=== PATIENT | male | born 1950 | race Caucasian/White ===

== ENCOUNTER 2018-03-13 16:46 | Outpatient (CLI) | payer BC ==
[2018-03-13 17:44] LABS: #Eosinphils 0.2 thou/uL (0.0-0.7); #Lymphocytes 1.8 thou/uL (1.20-3.40); #Monocytes 0.6 thou/uL (0.11-0.59); #Neutrophils 4.2 thou/uL (1.40-6.50); %Basophils 0.3 % (0.0-1.0); %Eosinophils 3.1 % (0.0-10.0); %Lymphocytes 25.9 % (21.0-51.0); %Monocytes 8.5 % (0.0-10.0); %Neutrophils 62.2 % (42.0-75.0); Hemoglobin 14.6 g/dL (14.0-18.0); Mean Corpuscular HGB CONC 32.9 g/dL (32.0-36.0); Mean Corpuscular Hemoglobin 31.2 pg (27.0-31.0); Mean Corpuscular Volume 94.8 fL (78.0-98.0); Mean Platelet Volume 7.8 fL (7.4-10.4); Platelet Count 212 thou/uL (130-400); Red Blood Cell (RBC) Count 4.69 mill/uL (4.70-6.10); White Blood Cell (WBC) Count 6.8 thou/uL (4.8-10.8)
[2018-03-13 17:48] LABS: INR-International Normal Ratio 1.1; PTT 34.2 SEC (22.9-36.1)
[2018-03-13 18:09] LABS: ALT (SGPT) 30 U/L (8-55); AST (SGOT) 17 U/L (5-34); Albumin 4.5 g/dL (3.4-4.8); Alkaline Phosphatase 55 U/L (40-150); Anion Gap 12 mmol/L (10-20); BUN (Urea Nitrogen) 19 mg/dL (8.4-25.7); Bilirubin, Total 0.7 mg/dL (0.2-1.2); Calc. Creatinine Clearance 0 mL/min (70-130); Calcium 9.6 mg/dL (7.8-10.44); Carbon Dioxide 29 mmol/L (23-31); Chloride 97 mmol/L (98-107); Estimated GFR-MDRD 75; Globulin 2.6 g/dL (2.4-3.5); Glucose 177 mg/dL (80-115); Potassium 3.7 mmol/L (3.5-5.1); Protein, Total 7.1 g/dL (5.8-8.1); Sodium 134 mmol/L (136-145)
== END 2018-03-13 16:47 | disposition home or self-care (01) ==
LOC: LABBT 16:46
PROVIDERS: ATTEND Internal Medicine Cardiovascular Disease
DX: Z01.812 Encounter for preprocedural laboratory examination (principal); R94.39 Abnormal result of other cardiovascular function study; R06.09 Other forms of dyspnea
CPT/HCPCS: 80053; 85025; 85610; 85730

== ENCOUNTER → 2018-03-17 | Day surgery (SDC) | payer BC ==
[2018-03-13 16:56] VITALS: BMI 30.6
[~2018-03-17] MED LIST: Fentanyl 100 MCG/2 ML VIAL ONE; Iopamidol 370 76% 100 ML VIAL ONE; Lidocaine 1% (PF) 30 ML VIAL ONE; Midazolam HCl 2 mg/2 ml Vial ONE; Nitroglycerin 100MG/250ML BOT 250 ML ONE
== END ==
LOC: CCL 06:09
PROVIDERS: ATTEND Internal Medicine Cardiovascular Disease
PROC: B2111ZZ Fluoroscopy of Multiple Coronary Arteries using Low Osmolar Contrast (ICD-10-PCS; principal; 2018-03-17)
PROC: 4A023N7 Measurement of Cardiac Sampling and Pressure, Left Heart, Percutaneous Approach (ICD-10-PCS; principal; 2018-03-17)
DX: I25.119 Atherosclerotic heart disease of native coronary artery with unspecified angina pectoris (principal); I25.84 Coronary atherosclerosis due to calcified coronary lesion; I10 Essential (primary) hypertension; E11.9 Type 2 diabetes mellitus without complications; E78.5 Hyperlipidemia, unspecified; J45.909 Unspecified asthma, uncomplicated; E78.00 Pure hypercholesterolemia, unspecified; Z79.82 Long term (current) use of aspirin; Z79.84 Long term (current) use of oral hypoglycemic drugs; Z79.899 Other long term (current) drug therapy
CPT/HCPCS: 76942; 93458; 99152; 99153; C1769; J1644; J2001; J2250; J3010

== ENCOUNTER 2018-08-22 08:31 | Day surgery (SDC) | payer BC ==
[2018-08-21 16:58] VITALS: BMI 29.0
--- NOTE | 2018-08-22 07:06 | HP ---
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 [place] significant lateral recess and foraminal stenosis, matching well with the symptoms that he is experiencing. His pain is rather profound and prohibits him from a lot of his physical activity. He hopes to move forward with surgery as possible. He does have a known history of significant lumbar decompression surgeries. PAST MEDICAL HISTORY: Significant for seasonal allergies, hypertension, hypercholesterolemia, diabetes. ALLERGIES: NO KNOWN DRUG ALLERGIES. CURRENT MEDICATIONS: 1. Singulair. 2. Ramipril. 3. Diovan/valsartan. 4. Pravastatin. 5. Metformin. 6. Imiquimod. PHYSICAL EXAMINATION: GENERAL: The patient is alert and oriented x3. Gait is severely antalgic. EXTREMITIES: Lower extremity exam is normal though limited by pain. He has positive femoral stretch on the left. ASSESSMENT: Lumbar radiculopathy. PLAN: Dr. Aguirre met with the patient, reviewed imaging, advocated for left L3, L4 decompression. He explained to the patient the risks, benefits, and alternatives to the procedure. The patient expressed understanding and elected to move forward with surgery as discussed. I do believe the patient is mentally competent capable of making medical decisions for himself. We will move forward with surgery as planned. Job ID: [id number]
[2018-08-22] MEDS ORDERED: Bupivacaine HCl 0.5%/Epinephrine 1:200,000/PF 30 ml Vial ONE (11:59)
[2018-08-22] MEDS ORDERED: Thrombin 5000 UNITS/5 ML VIAL ONE (11:59)
[2018-08-22] MEDS ORDERED: Fentanyl 100 MCG/2 ML VIAL ONE ×3 (12:41→15:16)
--- NOTE | 2018-08-22 15:37 | OP ---
DATE OF PROCEDURE: 08/22/2018 HEALTH COMMUNICATIONS SPECIALIST: Hemant Buenrostro PA-C INDICATION: Pain. DIAGNOSIS: Lumbar radiculopathy. PROCEDURES PERFORMED: Reoperation L4 hemilaminectomy, L3-L4 facetectomy, L3 foraminotomy, L2-L3 hemilaminectomy, decompression. ANESTHESIA: General. DESCRIPTION OF PROCEDURE: The patient was brought into the operating room and placed under general anesthesia. He was flipped from the supine to prone position on the operating room table. A linear incision was planned and centered around the L3 foramen. After prepping and draping and after an appropriate operative pause, the incision was created. The soft tissues were swept left of midline. A high-speed cutting drill bit as well as 2, 3, and 4 mm Kerrisons were used to perform a complete laminectomy along L3. Laminectomy was extended to encompass most of the facet joint at L3-L4 in order to completely unroof the exiting L3 nerve root and the descending L4 nerve root. In this area, there was a significant degree of scar, a large superior articulating facet portion of L4 as well as a synovial cyst. We also ensured that the L3 nerve root was well decompressed as it turned to corner around the medial aspect of the pedicle at the L2-L3 interface. The wound was then irrigated. Hemostasis was maintained throughout. The wound was then closed in anatomic layers and a pressure dressing was applied. There were no known procedural complications. Job ID: [id number]
[2018-08-22] MEDS ORDERED: Tamsulosin HCl 0.4 MG CAP ONE (15:49)
[2018-08-22] MEDS ORDERED: Glycopyrrolate 0.2 MG/ML 5 ML SYRINGE ONE (16:31)
[2018-08-22] MEDS ORDERED: PROPOFOL 200 MG/20 ML VIAL ONE (16:31)
[2018-08-22] MEDS ORDERED: Ondansetron PF 4 MG/2 ML Vial ONE (16:31)
[2018-08-22] MEDS ORDERED: Rocuronium Bromide 10 MG/ML (10ML VIAL) ONE (16:31)
[2018-08-22] MEDS ORDERED: PHENYLEPHRINE-NS 100 MCG/ML 10 ML SYRINGE ONE (16:31)
[2018-08-22] MEDS ORDERED: ePHEDrine 50 MG/ML VIAL ONE (16:31)
[2018-08-22] MEDS ORDERED: Lidocaine 1% PF 5 ML VIAL ONE (16:31)
[2018-08-22] MEDS ORDERED: Dexamethasone 20 MG/5 ML VIAL ONE (16:31)
[2018-08-22] MEDS ORDERED: tiZANidine HCl 4 MG TAB ONE (16:33)
== END 2018-08-22 17:45 | disposition home or self-care (01) ==
LOC: SDC 08:31
PROVIDERS: ATTEND Neurological Surgery
PROC: 0SB20ZZ Excision of Lumbar Vertebral Disc, Open Approach (ICD-10-PCS; principal; 2018-08-22)
PROC: 01NB0ZZ Release Lumbar Nerve, Open Approach (ICD-10-PCS; principal; 2018-08-22)
DX: M48.061 Spinal stenosis, lumbar region without neurogenic claudication (principal); M54.16 Radiculopathy, lumbar region; I10 Essential (primary) hypertension; E11.9 Type 2 diabetes mellitus without complications; E78.00 Pure hypercholesterolemia, unspecified; Z79.84 Long term (current) use of oral hypoglycemic drugs; Z79.899 Other long term (current) drug therapy
CPT/HCPCS: 76000; J0670; J0690; J1100; J2001; J2405; J2704; J3010; J3490

== ENCOUNTER 2018-10-02 15:00 | Outpatient (CLI) | payer BC | END 2018-10-02 15:01 | disposition home or self-care (01) | LOC: SLEEPLAB 15:00 | PROVIDERS: ATTEND Internal Medicine Critical Care Medicine | DX: G47.33 Obstructive sleep apnea (adult) (pediatric) (principal); R53.83 Other fatigue; E11.9 Type 2 diabetes mellitus without complications | CPT/HCPCS: 95806 ==

== ENCOUNTER 2019-02-12 14:21 | Inpatient (IN) | payer BC, MEDICARE ==
[2019-02-12 14:45] LABS: #Eosinphils 0.2 thou/uL (0.0-0.7); #Lymphocytes 0.8 thou/uL (1.20-3.40); #Monocytes 0.6 thou/uL (0.11-0.59); #Neutrophils 10.9 thou/uL (1.40-6.50); %Basophils 0.1 % (0.0-1.0); %Eosinophils 1.3 % (0.0-10.0); %Lymphocytes 6.2 % (21.0-51.0); %Monocytes 5.1 % (0.0-10.0); %Neutrophils 87.4 % (42.0-75.0); Hemoglobin 15.5 g/dL (14.0-18.0); Mean Corpuscular Volume 94.2 fL (78.0-98.0); Mean Platelet Volume 7.7 fL (7.4-10.4); Platelet Count 183 thou/uL (130-400); RBC Distribution Width 11.6 % (11.5-14.5); Red Blood Cell (RBC) Count 4.69 mill/uL (4.70-6.10); White Blood Cell (WBC) Count 12.4 thou/uL (4.8-10.8)
[2019-02-12] MEDS ORDERED: ISOVUE-370 76%-LOCM 1 ML ONE (14:58)
--- NOTE | 2019-02-12 15:07 | RAD ---
1 VIEW CHEST: Date: 02/12/19 HISTORY: Pain. COMPARISON: 07/11/15. FINDINGS: Normal cardiac silhouette. Lungs and pleural spaces are clear. No pneumothorax or osseous abnormaliti es. IMPRESSION: No acute cardiopulmonary process. POS: [facility]
[2019-02-12] MEDS ORDERED: Morphine 4 MG/ML VIAL ONE ×3 (15:14→17:13)
[2019-02-12 15:18] LABS: ALT (SGPT) 28 U/L (8-55); AST (SGOT) 20 U/L (5-34); Albumin 4.8 g/dL (3.4-4.8); Alkaline Phosphatase 65 U/L (40-110); Anion Gap 14 mmol/L (10-20); BUN (Urea Nitrogen) 17 mg/dL (8.4-25.7); Calc. Creatinine Clearance 0 mL/min (70-130); Calcium 9.8 mg/dL (7.8-10.44); Carbon Dioxide 25 mmol/L (23-31); Chloride 96 mmol/L (98-107); Estimated GFR-MDRD 80; Globulin 2.9 g/dL (2.4-3.5); Glucose 201 mg/dL (80-115); Potassium 3.2 mmol/L (3.5-5.1); Protein, Total 7.7 g/dL (5.8-8.1); Sodium 132 mmol/L (136-145)
[2019-02-12 15:33] LABS: Lipase 1690 U/L (8-78)
--- NOTE | 2019-02-12 16:00 | CT ---
EXAM: Abdomen and pelvic CT scan with contrast: HISTORY: Left upper quadrant abdominal pain radiation to back prior surgeries with lumbar spine surgery prior to, neoplasm. COMPARISON: None FINDINGS: The visualized lung bases are clear. Liver: Tiny poorly defined low-attenuation focus in the right lobe of the liver too small to characte rize, statistically a small cyst. Small hiatal hernia with minimal thickening of the distal esophagus, there are some surgical clips in this region. Gallbladder:Unremarkable. Pancreas:Peripancreatic fat stranding involving the head and body of the pancreas with some thickenin g of the left anterior pararenal fascia raising concern for acute pancreatitis, correlate with laboratory findings. Spleen:Unremarkable. Adrenal glands:Unremarkable. Kidneys:Small nonobstructing left renal calculus. No evidence for acute obstruction. No solid or cystic renal mass. No evidence for bowel obstruction. No CT evidence for acute appendicitis. The urinary bladder is unremarkable. Reproductive system:Unremarkable No abscess, adenopathy, or abnormal fluid collection within the abdomen or pelvis. Small fat-containing left inguinal hernia. Lumbar spinal postoperative changes. IMPRESSION: Evidence for acute pancreatitis. Nonobstructing left renal calculus. Other findings as above.
--- NOTE | 2019-02-12 16:43 | ULT ---
Exam: Right upper quadrant ultrasound: HISTORY: Abdominal pain COMPARISON: CT abdomen on 02/12/2019 obtained prior to this exam. FINDINGS: Liver: Mildly enlarged in craniocaudal dimensions measuring 19.7 cm. There is mild increased echogen[place] of the liver relative to the right kidney which suggests possibility of mild fatty infiltration. This finding was not appreciated on the recent CT scan exam. No focal hepatic lesion is able to be delineated on this study. Gallbladder: No evidence of gallbladder calculi, gallbladder wall thickening, or pericholecystic flui d. Common bile duct: The common duct is normal in caliber measuring 2 mm in diameter. Pancreas: Obscured by shadowing from bowel gas and not evaluated. Right kidney: Right kidney demonstrates a normal sonographic appearance. The right kidney measures 1 2.3 cm in length. IVC: The visualized IVC demonstrates a normal sonographic appearance. IMPRESSION: 1. Enlargement of the liver which also demonstrates findings suggestive of mild fatty infiltration. 2. No gallbladder calculi are seen, and the common duct is normal in caliber.
[2019-02-12 17:04] LABS: Bilirubin Negative (Negative); Blood, Urine Negative (Negative); Clarity Clear (Clear); Glucose, Urine (Dipstick) 150 mg/dL (Negative); Leukocyte Negative Leu/uL (Negative); Nitrite Negative (Negative); Protein, Urine (Dipstick) 10 mg/dL (Neg-Trace); Urobilinogen Normal mg/dL (Less than 2)
[2019-02-12 17:24] LABS: RBC/HPF None Seen HPF (0-3); Squamous Epithelial 0-3 HPF (0-3); WBC/HPF None Seen HPF (0-3)
[2019-02-12 17:25] LABS: Bacteria/HPF None Seen HPF (None Seen); Calcium Oxalate Crystals 1+ HPF (None Seen)
[2019-02-12] MEDS ORDERED: Ondansetron PF 4 MG/2 ML Vial IVP PRN (17:39)
[2019-02-12] MEDS ORDERED: PROVENTIL INHALER 6.7 G (200 INHALATIONS) INH PRN (17:56)
[2019-02-12] MEDS ORDERED: Albuterol Sulfate 1.25 MG/3 ML NEB NEB PRN (17:56)
[2019-02-12] MEDS ORDERED: Dextrose 50% Abboject 50 ML SYRINGE SLOW IVP PRN (17:57)
[2019-02-12] MEDS ORDERED: HumaLOG 300 UNITS/3 ML VIAL SC PRN (17:57)
[2019-02-12] MEDS ORDERED: Dextrose 5% in Water 1,000 ML IV PRN (17:57)
[2019-02-12] MEDS ORDERED: Potassium Chloride 10 MEQ/100 ML PREMIX BAG IVPB SCH (18:00)
[2019-02-12] MEDS ORDERED: Morphine 2 MG/ML SYRINGE ONE (19:24)
[2019-02-12] MEDS ORDERED: Famotidine/PF 20 mg/2ml Vial SLOW IVP SCH (21:15)
[2019-02-12] MEDS: Ketorolac Tromethamine 30 MG/ML VIAL IVP PRN (21:29)
[2019-02-12] MEDS: Sodium Chloride 0.9% 1,000 ML IV SCH (21:30)
[2019-02-12 22:55] VITALS: BMI 30.2
[2019-02-13] MEDS: Morphine 4 MG/ML VIAL SLOW IVP PRN ×3 (00:31→15:00)
[2019-02-13] MEDS: Sodium Chloride 0.9% 1,000 ML IV SCH ×2 (00:34→17:22)
[2019-02-13] MEDS: Ketorolac Tromethamine 30 MG/ML VIAL IVP PRN ×2 (05:24→11:51)
[2019-02-13 07:48] LABS: ALT (SGPT) 21 U/L (8-55); AST (SGOT) 20 U/L (5-34); Albumin 3.5 g/dL (3.4-4.8); Alkaline Phosphatase 48 U/L (40-110); Anion Gap 12 mmol/L (10-20); BUN (Urea Nitrogen) 15 mg/dL (8.4-25.7); Bilirubin, Total 0.6 mg/dL (0.2-1.2); Calc. Creatinine Clearance 131 mL/min (70-130); Calcium 8.3 mg/dL (7.8-10.44); Carbon Dioxide 22 mmol/L (23-31); Chloride 103 mmol/L (98-107); Estimated GFR-MDRD Greater than 90; Globulin 2.3 g/dL (2.4-3.5); Glucose 133 mg/dL (80-115); Lipase 683 U/L (8-78); Potassium 3.9 mmol/L (3.5-5.1); Protein, Total 5.8 g/dL (5.8-8.1); Sodium 133 mmol/L (136-145)
[2019-02-13 07:55] LABS: #Eosinphils 0.1 thou/uL (0.0-0.7); #Lymphocytes 0.6 thou/uL (1.20-3.40); #Monocytes 0.4 thou/uL (0.11-0.59); #Neutrophils 5.5 thou/uL (1.40-6.50); %Basophils 0.2 % (0.0-1.0); %Eosinophils 1.1 % (0.0-10.0); %Lymphocytes 8.7 % (21.0-51.0); %Monocytes 6.3 % (0.0-10.0); %Neutrophils 83.6 % (42.0-75.0); Hemoglobin 12.7 g/dL (14.0-18.0); Mean Corpuscular HGB CONC 35.2 g/dL (32.0-36.0); Mean Corpuscular Hemoglobin 33.1 pg (27.0-31.0); Mean Platelet Volume 7.8 fL (7.4-10.4); Platelet Count 127 thou/uL (130-400); RBC Distribution Width 11.6 % (11.5-14.5); Red Blood Cell (RBC) Count 3.83 mill/uL (4.70-6.10); White Blood Cell (WBC) Count 6.6 thou/uL (4.8-10.8)
--- NOTE | 2019-02-13 08:30 | PDOC.HOSPP ---
- Subjective Encounter Date: 02/13/19 Encounter Time: 08:28 Subjective: Doing well. Pain is improved. Not resolved, but much improved. Slept well for a few hours last night. Was awakened by routine hospital operations and did not go back to sleep. Toradol helping. - Objective Vital Signs & Weight: Vital Signs (12 hours) Temp Pulse Resp BP Pulse Ox 02/13/19 07:10 98.8 F 75 18 121/76 95 02/13/19 04:11 97.6 F 75 18 119/78 96 02/13/19 00:35 97.6 F 77 18 114/72 96 02/13/19 00:04 95 Weight Weight 222 lb 8 oz I&O: 02/12/19 02/13/19 02/14/19 06:59 06:59 06:59 Intake Total 825 Balance 825 Result Diagrams: 02/13/19 07:45 02/13/19 06:13 Additional Labs: Accuchecks 02/13/19 02/12/19 04:14 21:09 POC Glucose 147 H 151 H Hospitalist ROS - Medication Medications: Active Medications Generic Name Dose Route Start Last Admin Trade Name Freq PRN Reason Stop Dose Admin Sodium Chloride 1,000 mls @ 75 mls/hr 02/12/19 17:45 02/13/19 00:34 Normal Saline 0.9% IV 1,000 mls .[id number] GIN Administration Ketorolac Tromethamine 15 mg 02/12/19 21:10 02/13/19 05:24 Toradol IVP 02/17/19 21:11 15 mg Q6H PRN Administration Pain Morphine Sulfate 4 mg 02/12/19 17:42 02/13/19 00:31 Morphine SLOW IVP 2 mg Q4H PRN Administration Moderate to Severe Pain (6-10) - Exam General Appearance: NAD, awake alert Heart: RRR, no murmur, no gallops, no rubs, normal peripheral pulses Respiratory: CTAB, no wheezes, no rales, no ronchi, normal chest expansion, no tachypnea, normal percussion Gastrointestinal: soft, non-distended, normal bowel sounds, no palpable masses, no hepatomegaly, no splenomegaly, no bruit, tender to palpation (Minimal epigastric) Skin: normal turgor Musculoskeletal: normal tone Psychiatric: normal affect, normal behavior, A&O x 3 Hosp A/P (1) Pancreatitis Code(s): K85.90 - ACUTE PANCREATITIS WITHOUT NECROSIS OR INFECTION, UNSP Status: Acute (2) Diabetes mellitus Code(s): E11.9 - TYPE 2 DIABETES MELLITUS WITHOUT COMPLICATIONS Status: Acute (3) HTN (hypertension) Code(s): I10 - ESSENTIAL (PRIMARY) HYPERTENSION Status: Acute (4) HLD (hyperlipidemia) Code(s): E78.5 - HYPERLIPIDEMIA, UNSPECIFIED Status: Acute (5) Asthma Code(s): J45.909 - UNSPECIFIED ASTHMA, UNCOMPLICATED Status: Acute (6) Hx of tongue cancer Status: Acute - Plan Doing better. Abd pain improved. Lipase down significantly. Continue Toradol and MSO4 for breakthrough. Resume essential po meds. If doing well, can consider some clears later today. Continue nebs, BP meds.
[2019-02-13] MEDS ORDERED: Non-Formulary Item 1 EACH (Ramipril [Ramipril] 20 MG) PO SCH (09:00)
[2019-02-13] MEDS ORDERED: Prevnar 13-Val Conj/PF 0.5 ML SYRINGE IM ONE (09:00)
[2019-02-13] MEDS ORDERED: FLU VACC TS2019-20(65YR UP)/PF 180 MCG/0.5 ML SYRINGE IM ONE (09:00)
--- NOTE | 2019-02-13 09:11 | HP ---
Date Seen: 02/12/19 CHIEF COMPLAINT: Abdominal pain. HISTORY OF PRESENT ILLNESS: This patient is a 68-year-old male, who presented to the emergency department. The patient has no history of alcohol use, gallbladder disease, or prior pancreatitis. He developed some epigastric pain after eating his evening meal the day before admission. He was able to go to bed and sleep through the night. The next morning, he had a little bit of discomfort, tried some OTC , ate a little bit and went back to bed for a brief time and was seemingly doing better, was getting up and around and his pain recurred and ultimately became more severe and was radiating to the back. Because of the patient's family history of aortic aneurysm, he was concerned and came to the emergency department for further evaluation. He has had some low-grade nausea and vomiting. He has had no fevers or chills. REVIEW OF SYSTEMS: He has continued to have fairly regular bowel movements. No urinary symptoms. All other systems reviewed. All pertinent positives and negatives noted in the History of Present Illness. PAST MEDICAL HISTORY: Hypertension; hyperlipidemia; asthma; obstructive sleep apnea, on BiPAP; and diabetes mellitus. PAST SURGICAL HISTORY: Nasal septal surgery following the nasal fracture, left ossicle reconstruction, C5-C6 diskectomy with stabilizing plates. He has had L4 -L5 laminectomy, bilateral knee replacements. He has cancer of the tongue requiring surgical extraction and a modified radical right neck dissection. He has had surgery on the extraocular muscles, surgery on his eyes, tonsillectomy. He also had a heart catheterization in February of 2018, which was normal. FAMILY HISTORY: Father had AAA and osteoarthritis. His mother is still alive and doing well. SOCIAL HISTORY: The patient is a nonsmoker, nondrinker, and nondrug user. He is . Full code. 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 ALLERGIES: NONE. CURRENT MEDICATIONS: 1. Imiquimod cream 2 times a week. 2. PreserVision vitamins one p.o. at bedtime. 3. Cialis p.r.n. 4. Flonase 2 sprays per nostril b.i.d. 5. Atorvastatin 80 mg at bedtime. 6. Aspirin 81 mg daily. 7. Albuterol 2 puffs q.4 hours p.r.n. 8. Advair Diskus 250/50 one inhalation b.i.d. 9. Calcium plus vitamin D one daily. 10. Glucosamine chondroitin complex one p.o. b.i.d. 11. Lasix 20 mg at bedtime. 12. Potassium 20 mEq daily. 13. Multivitamin one p.o. daily. 14. Singulair 10 mg daily. 15. Metformin one p.o. b.i.d. 16. Spironolactone 25 mg daily. 17. Ramipril 20 mg b.i.d. 18. Effexor XR 37.5 mg daily. PHYSICAL EXAMINATION: VITAL SIGNS: Temperature is 98.2, pulse 93, respirations 18, O2 saturation 95% on room air, and blood pressure 148/82. GENERAL APPEARANCE: Age-appropriate male. He is in no distress. He has had some morphine, but is still awake and conversant and in modest discomfort. HEENT: He has some mild chronic right eye ptosis. Pupils are slightly constricted, modestly reactive. He has no OP lesions. Minimal evidence of scarring on the lateral right tongue. NECK: He has a surgical incision that is old and well healed. Otherwise, there is no lymphadenopathy noted. HEART: Regular rate and rhythm without murmurs, gallops, or rubs. LUNGS: Clear to auscultation bilaterally with good chest wall expansion and air exchange. ABDOMEN: Soft, nondistended. Positive bowel sounds. There is some tenderness across the epigastrium, although not exquisite at this time. No masses are palpable. EXTREMITIES: No cyanosis, clubbing, or edema. NEUROLOGICAL: He is fully intact. Cognitively appropriate. PSYCH: Normal affect and behavior. LABORATORY DATA: White count 12.4, hemoglobin 15.5, and platelets 183. Sodium 132, potassium 3.2, chloride 96, CO2 is 25, BUN 17, creatinine 0.94, glucose 201, lactic acid was 1.9, and calcium 9.8. LFTs normal. Troponin 0.01. Lipase was 1690. Urinalysis with trace ketones and some calcium oxalate crystals. IMAGING DATA: Chest x-ray was negative. CT abdomen and pelvis shows evidence for acute pancreatitis. Abdominal ultrasound shows an enlarged liver consistent with fatty liver. There are no gallstones and the common bile duct appears normal. IMPRESSION AND PLAN: 1. Acute pancreatitis in a patient, who is a nondrinker with normal-appearing gallbladder or biliary tree on ultrasound. He has no history of familial hypertriglyceridemia, at this point etiology is idiopathic. We will treat with standard therapy with IV fluids, general bowel rest. We will give him some sips of water and ice chips. Pain management. We will repeat his labs in the morning. 2. Hypokalemia. We will replete and follow. 3. History of asthma. Continue with nebulizers and inhalers as needed. 4. Hypertension. We will resume his usual medications as he is able to tolerate some p.o.'s. 5. Hyperlipidemia. Continue to hold the statin for the moment. 6. Diabetes mellitus. Holding any p.o. medications. We will continue Accu- Cheks and sliding scale insulin for now. Job ID: [id number] MTDD
[2019-02-13] MEDS: Aspirin 81 mg Enteric Coated Tablet PO SCH ×2 (09:59→21:13)
[2019-02-13] MEDS: Montelukast Sodium 10 mg Tablet PO SCH (09:59)
[2019-02-13] MEDS: Fluticasone Propionate Nasal Spray 16 gm Bottle NASAL SCH ×2 (10:00→21:13)
[2019-02-13] MEDS: Enoxaparin Sodium 40 MG/0.4 ML SYRINGE SC SCH (10:02)
[2019-02-13] MEDS: Famotidine/PF 20 mg/2ml Vial SLOW IVP SCH ×2 (11:49→21:13)
[2019-02-13] MEDS ORDERED: Mometasone 200 MCG HFA INHALER INH SCH (18:30)
[2019-02-13] MEDS ORDERED: Venlafaxine XR 37.5 MG CAP PO SCH (21:00)
[2019-02-13] MEDS: Ramipril 5 MG CAP PO SCH (21:13)
[2019-02-13] MEDS ORDERED: Acetaminophen 325 MG TAB PO PRN (21:54)
[2019-02-14] MEDS ORDERED: Mometasone/Formoterol 120 PUFF INHALER INH SCH (06:30)
[2019-02-14 06:46] LABS: Anion Gap 10 mmol/L (10-20); BUN (Urea Nitrogen) 11 mg/dL (8.4-25.7); Calc. Creatinine Clearance 125 mL/min (70-130); Calcium 8.8 mg/dL (7.8-10.44); Carbon Dioxide 28 mmol/L (23-31); Chloride 105 mmol/L (98-107); Estimated GFR-MDRD Greater than 90; Glucose 144 mg/dL (80-115); Lipase 311 U/L (8-78); Potassium 3.8 mmol/L (3.5-5.1); Sodium 139 mmol/L (136-145)
[2019-02-14] MEDS: Sodium Chloride 0.9% 1,000 ML IV SCH (07:07)
[2019-02-14] MEDS: Montelukast Sodium 10 mg Tablet PO SCH (09:17)
[2019-02-14] MEDS: Ramipril 5 MG CAP PO SCH (09:18)
[2019-02-14] MEDS: Aspirin 81 mg Enteric Coated Tablet PO SCH (09:18)
[2019-02-14] MEDS: Enoxaparin Sodium 40 MG/0.4 ML SYRINGE SC SCH (09:19)
[2019-02-14] MEDS: Famotidine/PF 20 mg/2ml Vial SLOW IVP SCH (09:19)
[2019-02-14] MEDS: Fluticasone Propionate Nasal Spray 16 gm Bottle NASAL SCH (09:19)
[2019-02-14 11:50] VITALS: BP 149/86; TEMP 98.1
--- NOTE | 2019-02-16 13:40 | DIS ---
DATE OF ADMISSION: 02/12/2019 DATE OF DISCHARGE: 02/14/2019 DISCHARGE DIAGNOSES: 1. Acute pancreatitis of unknown etiology. 2. Diabetes mellitus. 3. Hypertension. 4. Hyperlipidemia. 5. Asthma. 6. History of tongue cancer. 7. Hypokalemia. 8. Hyponatremia. HISTORY OF PRESENT ILLNESS: This patient is a 68-year-old male, who presented via the emergency department with significant upper abdominal pain which had started the prior day. His initial workup included a CT scan of the abdomen and pelvis showing evidence for acute pancreatitis. His white count was 12.4. Lactic acid was 1.9. Troponin was negative and lipase was elevated at 1690. He had an abdominal ultrasound showing some fatty liver, but no gallstones and a normal-appearing common bile duct. His sodium was slightly low at 132 and potassium was slightly low at 3.2. HOSPITAL COURSE: The patient was admitted with acute pancreatitis. He was started on fluid hydration, pain management, and bowel rest. By the following day, the patient was already starting to feel significantly better, and his white count had normalized at 6.6. His lipase did come down to 683 and his sodium up to 133. He was ultimately allowed to start some mild clear liquids by the end of that day. His pain management was primarily accomplished with nonopioid medications, and by the following morning, he tolerated clear liquids without any difficulty. Lipase was down to 311. His pain had resolved. Sodium normalized. Potassium normalized. He was ambulating throughout the hsu. Ultimately, he was elevated to a regular diet which he tolerated well and was felt to be stable for discharge several hours later. PHYSICAL EXAMINATION: VITAL SIGNS: At the time of discharge, temperature 98.1, pulse 83, respirations 20, O2 saturation 96%, blood pressure 149/86. GENERAL: He was awake and alert. HEART: Regular rate and rhythm without murmurs, gallops, or rubs. LUNGS: Clear bilaterally. ABDOMEN: Benign. EXTREMITIES: No cyanosis, clubbing, or edema. DISPOSITION: He is discharged to home. ACTIVITY: As tolerated. DIET: He will remain on a diabetic diet. MEDICATIONS: 1. Toradol 10 mg p.o. q.6 hours p.r.n. pain. 2. Tramadol 50 mg q.i.d. p.r.n. pain. 3. He will continue his usual home medication regimen including. a. Glucosamine and chondroitin complex. b. Atorvastatin. c. Multivitamin. d. Singulair. e. Ramipril. f. Advair Diskus. g. Calcium with vitamin D. h. Aspirin. i. Effexor. j. K-Dur. k. Lasix. l. Albuterol inhaler. m. Metformin. n. Spironolactone. o. Cialis. p. Flonase. q. PreserVision. r. Imiquimod cream as needed. FOLLOWUP: He is to follow up with Ramon Green, his primary physician, in the [place], [place], and he can return to the hospital at any time should he have the need to do so. TIME SPENT: Total time in discharge activities was 35 minutes. Job ID: [id number]
--- NOTE | 2019-02-19 22:13 | PQF ---
[employer] Information Manager Crystal Reports Winform ViewerPURVIS,DEANNE Flores NAOMY GARCIA MD [id number] CLINICAL DOCUMENTATION CLARIFICATION FORM: POST DISCHARGE Addendum to original discharge summary date: ____ Late entry note date: __ DATE: 02/19/2019 ATTN:NAOMY GARCIA MD Please exercise your independent, professional judgment in responding to the clarification form. Clinical indicators are provided on the bottom of this form for your review Please check appropriate box(s): [ x ] Hyponatremia please specify etiology, if known [ ] Hyponatremia due to SIADH (Syndrome of Inappropriate Secretion of Antidiuretic Hormone) [ ] Abnormal lab findings [ ] Other diagnosis [ ] Unable to determine In addition, please specify: Present on Admission (POA): [ x ] Yes [ ] No [ ] Unable to determine CLINICAL INDICATORS - SIGNS / SYMPTOMS / LABS - Sodium : 133L, 132L- Laboratory report, 02/12, 02/13 - DM type 2-H&P, 02/13, NAOMY GARCIA MD - he has had some lower grade nausea and vomiting -H&P, 02/13, NAOMY GARCIA MD RISK FACTORS - Acute pancreatitis-H&P, 02/13, NAOMY GARCIA MD - Hypokalemia-H&P, 02/13, NAOMY GARCIA MD TREATMENTS: -Sodium chloride.IV-MAR, 02/12 (This form is maintained as a part of the permanent medical record) 2014 [employer] All Rights Reserved Mone Mcginnis [not provided] [not provided] MTDD
--- NOTE | 2019-02-21 13:14 | EKG ---
Test Reason : ABD PAIN Blood Pressure : / mmHG Vent. Rate : 086 BPM Atrial Rate : 086 BPM P-R Int : 148 ms QRS Dur : 100 ms QT Int : 384 ms P-R-T Axes : 008 026 014 degrees QTc Int : 459 ms Normal sinus rhythm Normal ECG Confirmed by SURJIT PARK MD ([id number]), communications editor NAMAN PORTER ([id number]) on 02/21/2019 1:14:08 PM Referred By: Confirmed By:SURJIT PARK MD
== END 2019-02-14 14:56 | disposition home or self-care (01) | DRG 439 ==
LOC: ERS 14:21 → EEVIPCON 14:21 → T4-A 16:26
PROVIDERS: ADMIT Internal Medicine; ATTEND Internal Medicine
DX: K85.90 Acute pancreatitis without necrosis or infection, unspecified (principal); E87.1 Hypo-osmolality and hyponatremia; E11.9 Type 2 diabetes mellitus without complications; I10 Essential (primary) hypertension; E78.5 Hyperlipidemia, unspecified; Z96.653 Presence of artificial knee joint, bilateral; J45.909 Unspecified asthma, uncomplicated; E87.6 Hypokalemia; Z85.810 Personal history of malignant neoplasm of tongue; Z90.49 Acquired absence of other specified parts of digestive tract
CPT/HCPCS: 36415; 36416; 71045; 74177; 76705; 80048; 80053; 81003; 83605; 83690; 84484; 85025; 93005; 94760; 96361; 96374; 96375; 96376; J1885; J2270; J3480; Q9966; S0028

== ENCOUNTER 2019-04-09 06:36 | Outpatient (CLI) | payer BC ==
[2019-04-09 11:15] LABS: #Eosinphils 0.2 thou/uL (0.0-0.7); #Lymphocytes 1.2 thou/uL (1.20-3.40); #Monocytes 0.3 thou/uL (0.11-0.59); #Neutrophils 3.4 thou/uL (1.40-6.50); %Basophils 0.2 % (0.0-1.0); %Eosinophils 3.3 % (0.0-10.0); %Lymphocytes 23.4 % (21.0-51.0); %Monocytes 6.2 % (0.0-10.0); %Neutrophils 66.8 % (42.0-75.0); Hemoglobin 14.1 g/dL (14.0-18.0); Mean Corpuscular HGB CONC 33.9 g/dL (32.0-36.0); Mean Corpuscular Hemoglobin 32.1 pg (27.0-31.0); Mean Corpuscular Volume 94.7 fL (78.0-98.0); Mean Platelet Volume 8.2 fL (7.4-10.4); Platelet Count 179 thou/uL (130-400); RBC Distribution Width 11.8 % (11.5-14.5); Red Blood Cell (RBC) Count 4.38 mill/uL (4.70-6.10); White Blood Cell (WBC) Count 5.1 thou/uL (4.8-10.8)
[2019-04-09 11:23] LABS: Bacteria/HPF None Seen HPF (None Seen); Bilirubin Negative (Negative); Blood, Urine Negative (Negative); Clarity Clear (Clear); Glucose, Urine (Dipstick) Normal (Negative); Leukocyte Negative Leu/uL (Negative); Nitrite Negative (Negative); Protein, Urine (Dipstick) Negative (Neg-Trace); RBC/HPF None Seen HPF (0-3); Squamous Epithelial 0-3 HPF (0-3); Urobilinogen Normal mg/dL (Less than 2); WBC/HPF 0-3 HPF (0-3)
[2019-04-09 11:32] LABS: Anion Gap 13 mmol/L (10-20); BUN (Urea Nitrogen) 17 mg/dL (8.4-25.7); Calc. Creatinine Clearance 0 mL/min (70-130); Calcium 9.5 mg/dL (7.8-10.44); Carbon Dioxide 30 mmol/L (23-31); Chloride 101 mmol/L (98-107); Estimated GFR-MDRD Greater than 90; Glucose 143 mg/dL (80-115); Lipase 81 U/L (8-78); Potassium 3.7 mmol/L (3.5-5.1); Sodium 140 mmol/L (136-145)
[2019-04-09 11:38] LABS: Prothrombin Time 13.4 SEC (12.0-14.7)
--- NOTE | 2019-04-10 17:55 | EKG ---
Test Reason : Blood Pressure : / mmHG Vent. Rate : 071 BPM Atrial Rate : 071 BPM P-R Int : 186 ms QRS Dur : 096 ms QT Int : 434 ms P-R-T Axes : 048 036 003 degrees QTc Int : 471 ms Normal sinus rhythm Possible lead reversal in V2,V3. Can not rule out Anterior infarct , age undetermined Abnormal ECG When compared with ECG of 12-FEB-2019 14:25, Anterior infarct is now Present Confirmed by Ari KWAN ([id number]) on 04/10/2019 5:55:07 PM Referred By: KHANG Confirmed By:Ari KWAN
== END 2019-04-09 06:37 | disposition home or self-care (01) ==
LOC: LABBT 06:36
PROVIDERS: ATTEND Orthopaedic Surgery
DX: Z01.818 Encounter for other preprocedural examination (principal); M16.11 Unilateral primary osteoarthritis, right hip; I21.09 ST elevation (STEMI) myocardial infarction involving other coronary artery of anterior wall; R94.31 Abnormal electrocardiogram [ECG] [EKG]
CPT/HCPCS: 80048; 81001; 83690; 85025; 85610; 87081; 93005; 93010

== ENCOUNTER 2019-04-09 15:30 | Inpatient (IN) | payer BC, MEDICARE ==
[2019-04-09 09:06] VITALS: BMI 29.0
[2019-04-21] MEDS ORDERED: Sodium Chloride 0.9% 100 ML ONE (07:36)
[2019-04-21] MEDS ORDERED: Tranexamic Acid 1,000 MG/10 ML VIAL ONE (07:36)
[2019-04-21] MEDS ORDERED: Vancomycin 1.5 GRAM/300 ML BAG 1.5 GM in Premix Bag 1 BAG IVPB SCH (07:45)
[2019-04-21] MEDS ORDERED: Midazolam HCl 2 mg/2 ml Vial ONE (08:03)
[2019-04-21] MEDS ORDERED: Fentanyl 100 MCG/2 ML VIAL ONE ×4 (08:03→12:16)
[2019-04-21] MEDS ORDERED: diphenhydrAMINE 50 MG/ML VIAL IM/IV PRN (08:52)
[2019-04-21] MEDS ORDERED: Zolpidem Tartrate 5 MG TAB PO PRN ×2 (08:52→09:12)
[2019-04-21] MEDS ORDERED: fentaNYL Citrate/PF 2,000 MCG in Sodium Chloride 0.9% 60 ML IV PRN (08:52)
[2019-04-21] MEDS ORDERED: diphenhydrAMINE 25 MG CAP PO PRN ×2 (08:52→09:12)
[2019-04-21] MEDS ORDERED: Naloxone HCl 0.4 mg/ml Vial IV PRN (08:52)
[2019-04-21] MEDS ORDERED: Promethazine HCl 25 MG/ML VIAL IM PRN ×3 (08:52→10:45)
[2019-04-21] MEDS ORDERED: Ondansetron PF 4 MG/2 ML Vial IVP PRN ×2 (08:52→09:12)
[2019-04-21] MEDS ORDERED: Fentanyl 100 MCG/2 ML VIAL SLOW IVP PRN ×4 (09:12→10:07)
[2019-04-21] MEDS ORDERED: Acetaminophen 325 MG TAB PO PRN (09:12)
[2019-04-21] MEDS ORDERED: HYDROcodone/Acetaminophen 10/325 mg Tablet PO PRN ×2 (09:12)
[2019-04-21] MEDS ORDERED: Fluticasone Propionate Nasal Spray 16 gm Bottle NASAL PRN (09:14)
[2019-04-21] MEDS ORDERED: PROVENTIL INHALER 6.7 G (200 INHALATIONS) INH PRN (09:14)
[2019-04-21] MEDS ORDERED: IMIQUIMOD TOP SCH (09:15)
[2019-04-21] MEDS ORDERED: Promethazine HCl 25 MG/ML VIAL SLOW IVP PRN (10:45)
[2019-04-21] MEDS ORDERED: Ondansetron HCl/PF 4 MG/2 ML Vial IVP PRN (10:45)
[2019-04-21] MEDS ORDERED: PROPOFOL 200 MG/20 ML VIAL ONE (10:54)
[2019-04-21] MEDS ORDERED: Rocuronium Bromide 10 MG/ML (10ML VIAL) ONE (10:54)
[2019-04-21] MEDS ORDERED: Ondansetron PF 4 MG/2 ML Vial ONE (10:54)
[2019-04-21] MEDS ORDERED: ePHEDrine/0.9% NaCl/PF SYRINGE 50 mg/10 ml ONE (10:54)
[2019-04-21] MEDS ORDERED: Lidocaine 1% PF 5 ML VIAL ONE (10:54)
[2019-04-21] MEDS ORDERED: Bupivacaine HCl 0.5%/Epinephrine 1:200,000/PF 30 ml Vial ONE (10:54)
[2019-04-21] MEDS ORDERED: Glycopyrrolate 0.2 MG/ML 5 ML SYRINGE ONE (10:54)
[2019-04-21] MEDS ORDERED: Ketorolac Tromethamine 30 MG/ML VIAL ONE (11:59)
[2019-04-21] MEDS ORDERED: Albuterol Sulfate 1.25 MG/3 ML NEB ONE (12:28)
[2019-04-21] MEDS: Sodium Chloride 0.9% 1,000 ML IV SCH ×2 (14:05→21:21)
[2019-04-21] MEDS: Acetaminophen 500 MG TAB PO SCH ×3 (14:05→23:35)
[2019-04-21] MEDS: Ketorolac Tromethamine 30 MG/ML VIAL IVP SCH ×3 (14:06→23:35)
--- NOTE | 2019-04-21 14:25 | PDOC.FPRHP ---
- History of Present Illness Chief Complaint: Medical managment History of Present Illness: This is a 68 yo male with a pmh of HTN, DM2, HLD, asthma who presents to the hospital for a total hip replacement on the right. The surgery was provided by Dr. De Paz who asked us to assist with his medical management. Mr. Go was seen and treated for pancreatitis at this facility. He was treated per standard of care and restarted his medications and his symptoms began to return. At that time he was in [place] and was seen by his family doctor who recommended him stop his ramipril, as it has a potential to cause pancreatitis. Since this pancreatitis epsisode, his blood sugars have been difficult to control. He has been started on levemir 15 units BID and continues to have fasting and post-prandial blood glucose outside of the acceptable range. He also states that since his episode of pancreatitis, he has decreased the medications that cause pancreatitis. These include lasix and metformin. In addition, the pt denies CAD but reports 1 year ago, he had an abnormal cardiac stress test followed by a cardiac catheterization that showed 30% stenosis in the proximal LAD and circumflex arteries. Since then he has been working to control his BP but has struggled to do so. He is currently on chlorthalidone, amlodipine, valsartan, and lasix. Both lasix and chlorthalidone increase the risk of pancreatitis by some degree. He has not been taking a beta mark due to the risk of asthma exacerbation and hypoglycemia. Today he presents s/p total right hip replacement along with a need to titrate his insulin and blood pressure medications to appropriate effect. - Allergies/Adverse Reactions Allergies Allergy/AdvReac Type Severity Reaction Status Date / Time ramipril Allergy pancreatiti Verified 04/09/19 09:07 s - Home Medications Medication Instructions Recorded Confirmed Type Atorvastatin Calcium 80 mg PO QPM 08/04/15 04/09/19 History Calcium Carbonate/Vitamin D3 1 tab PO BID 08/04/15 04/09/19 History [Calcium 500 + D] Fluticasone/Salmeterol [Advair 1 spray INH BID PRN 08/04/15 04/09/19 History Diskus 250/50] Montelukast Sodium [Singulair] 10 mg PO DAILY 08/04/15 04/09/19 History Multivitamin [Multi-Day Vitamins] 1 tab PO DAILY 08/04/15 04/09/19 History Aspirin [Ecotrin Low Strength] 81 mg PO BID 08/06/15 04/09/19 History Venlafaxine [Effexor XR] 1 cap PO HS 12/28/15 04/09/19 History Albuterol Sulfate [Albuterol 2 puff IH Q4H PRN 08/21/18 04/09/19 History Sulfate Hfa] Potassium Chloride [K-Dur] 20 meq PO DAILY 08/21/18 04/09/19 History metFORMIN HCl [Metformin HCl] 1 tab PO BID 08/21/18 04/09/19 History Fluticasone Propionate [Flonase 2 spray EA NARE BID PRN 02/12/19 04/09/19 History Nasal [place]] Tadalafil [Cialis] 10 mg PO ASDIR PRN 02/12/19 04/09/19 History Imiquimod [Imiquimod 5% Cream] 1 applic TOP .2X'S/WEEK 02/13/19 04/09/19 History Vit A/Vit C/Vit E/Zinc/Copper 1 tablet PO HS 02/13/19 04/09/19 History [PreserVision AREDS] Furosemide [Lasix] 20 mg PO BID 04/09/19 04/09/19 History Insulin Detemir [Levemir Flextouch] 8 units SC BID 04/09/19 04/09/19 History Valsartan 1 tab PO BID 04/09/19 04/09/19 History - History PMHx: HTN, HLD, Asthma, IDDM2 PSHx: Eye muscle surgery, nasal septum repair, C 5-6 discectomy w/ bone marrow graft, L4-5 hemilamectomy w/discectomy, bilateral TKR, Squamous cell of tongue with removal and modifeied radical dissection of the right neck, heart cath, L3- 4/L4-5 nerve root decompression, right total hip today FHx: DM, father had AAA Social: None - Review of Systems General: denies: fever/chills, weight/appetite/sleep changes Eyes: denies: eye pain, vision changes ENT: denies: nasal congestion, rhinorrhea Respiratory: denies: cough, congestion, shortness of breath Cardiovascular: denies: chest pain, palpitation Gastrointestinal: denies: nausea, vomiting, diarrhea, constipation Skin: denies: lesions, jaundice Musculoskeletal: reports: pain (right hip) Neurological: denies: numbness, syncope Psychological: denies: anxiety, depression - Vital signs BP: 134/85 HR: 79 RR: 16 Tmax: 97.5 Pox: 95% on ra Wt: 100 kg - Physical Exam Constitutional: NAD, awake, alert and oriented, well developed HEENT: normocephalic and atraumatic, MMM Neck: supple, no JVD Chest: no-tender to palpation Heart: RRR, normal S1/S2, no murmurs/rubs/gallops, pulses present, no edema Lungs: CTAB, no respiratory distress, good air movement Abdomen: soft, non-tender, bowel sounds present, no masses/distention Musculoskeletal: normal tone, other (decrease ROM in right hip 2/2 surgery, incision currently covered) Neurological: no focal deficit, normal sensation Skin: good turgor, capillary refill <2 seconds Heme/Lymphatic: no unusual bruising or bleeding Psychiatric: good judgment and insight FMR H&P: A/P - Problem List (1) Status post total hip replacement, right Current Visit: Yes Status: Acute Code(s): Z96.641 - PRESENCE OF RIGHT ARTIFICIAL HIP JOINT (2) Asthma Current Visit: No Status: Acute Code(s): J45.909 - UNSPECIFIED ASTHMA, UNCOMPLICATED (3) Diabetes mellitus Current Visit: No Status: Acute Code(s): E11.9 - TYPE 2 DIABETES MELLITUS WITHOUT COMPLICATIONS (4) HLD (hyperlipidemia) Current Visit: No Status: Acute Code(s): E78.5 - HYPERLIPIDEMIA, UNSPECIFIED (5) HTN (hypertension) Current Visit: No Status: Acute Code(s): I10 - ESSENTIAL (PRIMARY) HYPERTENSION - Plan This is a 68 yo male with a pmh of HTN, DM2, HLD, asthma Total hip replacement on the right, indications DJD POD 0 -Managed by Dr. De Paz -PT/OT HTN -Continue home valsartan, amlodipine, and chlorthalidone -Will monitor his BP and plan to add imdur or diltiazem to his BP regimen HLD -Continue home atorvastatin DM2 -Continue home metformin -Plan to titrate insulin to effect. Goal blood glucose is 140-180 fasting and 2 hr post-prandial. Will start pt at levemir 15 units BID. In addition, we will start with 5 units of humalog with every meal and titrate based on accuchecks -ACHS accuchecks, hypoglycemic protocol Asthma -Continue home albuterol, montelukast, dulera Depression -Continue venlafaxine
[2019-04-21] MEDS ORDERED: Dextrose 5% in Water 1,000 ML IV PRN (15:05)
[2019-04-21] MEDS ORDERED: Dextrose 50% Abboject 50 ML SYRINGE SLOW IVP PRN (15:05)
[2019-04-21] MEDS ORDERED: HumaLOG 300 UNITS/3 ML VIAL SC SCH (15:15)
--- NOTE | 2019-04-21 16:51 | RAD ---
Right hip 2 views HISTORY: Arthritis. Replacement. FINDINGS: Metallic prosthesis in place. No perihardware lucency. Soft tissue gas consistent with rece nt surgery. IMPRESSION: Right hip prosthesis is in good radiographic position.
[2019-04-21] MEDS: CEFAZOLIN 2 GM in Premix Bag 1 BAG IVPB SCH ×2 (16:53→23:35)
[2019-04-21] MEDS: metFORMIN 500 MG TAB PO SCH (18:52)
[2019-04-21] MEDS: HumaLOG 300 UNITS/3 ML VIAL SC SCH (18:53)
[2019-04-21] MEDS: Mometasone/Formoterol 120 PUFF INHALER INH SCH (20:21)
[2019-04-21] MEDS ORDERED: Insulin Glargine 8 UNITS in Pre-Filled Syringe 1 EACH SC SCH (21:00)
[2019-04-21] MEDS ORDERED: Insulin Glargine 15 UNITS in Pre-Filled Syringe 1 EACH SC SCH (21:00)
[2019-04-21] MEDS ORDERED: INSULIN DETEMIR 8 UNIT SC SCH (21:00)
[2019-04-21] MEDS ORDERED: Aspirin 81 mg Enteric Coated Tablet PO SCH (21:00)
[2019-04-21] MEDS: Cholecalciferol (Vitamin D3) 400 UNITS TAB PO SCH (21:11)
[2019-04-21] MEDS: Atorvastatin Calcium 40 MG TAB PO SCH (21:11)
[2019-04-21] MEDS: Venlafaxine XR 37.5 MG CAP PO SCH (21:11)
[2019-04-21] MEDS: Calcium Carbonate 600 MG TAB PO SCH (21:11)
[2019-04-21] MEDS: Aspirin 81 mg Enteric Coated Tablet PO SCH (21:11)
[2019-04-22] MEDS: Sodium Chloride 0.9% 1,000 ML IV SCH ×3 (04:49→21:55)
[2019-04-22 05:06] LABS: Hemoglobin 11.7 g/dL (14.0-18.0); Mean Corpuscular Hemoglobin 32.9 pg (27.0-31.0); Mean Corpuscular Volume 94.2 fL (78.0-98.0); Mean Platelet Volume 7.5 fL (7.4-10.4); Platelet Count 145 thou/uL (130-400); RBC Distribution Width 11.5 % (11.5-14.5); Red Blood Cell (RBC) Count 3.54 mill/uL (4.70-6.10); White Blood Cell (WBC) Count 6.1 thou/uL (4.8-10.8)
[2019-04-22 05:10] LABS: Hemoglobin A1c 9.7 % (4.0-6.0)
[2019-04-22 05:27] LABS: ALT (SGPT) 26 U/L (8-55); AST (SGOT) 23 U/L (5-34); Albumin 3.6 g/dL (3.4-4.8); Alkaline Phosphatase 53 U/L (40-110); Anion Gap 8 mmol/L (10-20); BUN (Urea Nitrogen) 15 mg/dL (8.4-25.7); Bilirubin, Total 1.1 mg/dL (0.2-1.2); Calc. Creatinine Clearance 130 mL/min (70-130); Calcium 8.7 mg/dL (7.8-10.44); Carbon Dioxide 30 mmol/L (23-31); Chloride 99 mmol/L (98-107); Estimated GFR-MDRD Greater than 90; Glucose 166 mg/dL (80-115); Protein, Total 5.6 g/dL (5.8-8.1); Sodium 134 mmol/L (136-145)
[2019-04-22] MEDS: Acetaminophen 500 MG TAB PO SCH ×3 (05:35→18:14)
[2019-04-22] MEDS: Ketorolac Tromethamine 30 MG/ML VIAL IVP SCH ×3 (05:35→18:14)
[2019-04-22 05:44] LABS: Potassium 2.9 mmol/L (3.5-5.1)
[2019-04-22] MEDS ORDERED: Potassium Chloride 20 MEQ TAB PO SCH ×3 (06:00→17:00)
--- NOTE | 2019-04-22 06:02 | PDOC.FM ---
- Subjective Subjective: Pt states he did well overnight. He states his hip is sore but not unbearable. We discussed the plan for regular accuchecks and he expressed understanding. He did report wanting potassium with bicarb rather that potassium chloride. - Objective MAR Reviewed: Yes Vital Signs & Weight: Vital Signs (12 hours) Temp Pulse Resp BP BP Pulse Ox 04/22/19 05:14 95 04/22/19 04:08 98.3 F 82 18 121/78 95 04/22/19 00:00 98.6 F 74 18 114/74 94 L 04/21/19 20:12 97.3 F L 77 18 121/78 93 L Weight Weight 99.79 kg I&O: 04/20/19 04/21/19 04/22/19 06:59 06:59 06:59 Intake Total 2210 Output Total 1475 Balance 735 Result Diagrams: 04/22/19 04:47 04/22/19 04:47 Phys Exam - Physical Examination Constitutional: NAD HEENT: moist MMs Neck: no JVD Respiratory: no wheezing, clear to auscultation bilateral Cardiovascular: RRR, no significant murmur Gastrointestinal: soft, non-tender, no distention, positive bowel sounds Musculoskeletal: no edema, pulses present tenderness over right hip, limited ROM Neurological: moves all 4 limbs Psychiatric: A&O x 3 Skin: cap refill <2 seconds Dx/Plan (1) Status post total hip replacement, right Code(s): Z96.641 - PRESENCE OF RIGHT ARTIFICIAL HIP JOINT Status: Acute (2) Asthma Code(s): J45.909 - UNSPECIFIED ASTHMA, UNCOMPLICATED Status: Acute (3) Diabetes mellitus Code(s): E11.9 - TYPE 2 DIABETES MELLITUS WITHOUT COMPLICATIONS Status: Acute (4) HLD (hyperlipidemia) Code(s): E78.5 - HYPERLIPIDEMIA, UNSPECIFIED Status: Acute (5) HTN (hypertension) Code(s): I10 - ESSENTIAL (PRIMARY) HYPERTENSION Status: Acute - Plan Plan: This is a 68 yo male with a pmh of HTN, DM2, HLD, asthma Total hip replacement on the right, indications DJD POD 1 -Managed by Dr. De Paz -PT/OT HTN -Continue home valsartan, amlodipine, and chlorthalidone -Will monitor his BP and plan to add imdur or diltiazem to his BP regimen HLD -Continue home atorvastatin DM2 -Continue home metformin -Plan to titrate insulin to effect. Goal blood glucose is 140-180 fasting and 2 hr post-prandial. Increasing levemir to 17 units BID. We will continue 5 units of humalog with every meal and titrate based on accuchecks -ACHS accuchecks, hypoglycemic protocol Asthma -Continue home albuterol, montelukast, dulera. Pt states that dulera has worked better than advair and wants to continue this after discharge Depression -Continue venlafaxine Hypokalemia -Replacing, will monitor Addendum - Attending - Attending Attestation Date/Time: 04/22/19 1008 I personally evaluated the patient and discussed the management with Dr. Jackson. I agree with the History, Examination, Assessment and Plan documented above with any addition or exceptions noted below. POD #1 expected course. BP's and BS's in tolerable range. Will continue to titrate as tolerated here and as OP.
[2019-04-22] MEDS: HumaLOG 300 UNITS/3 ML VIAL SC SCH ×3 (06:49→18:15)
[2019-04-22] MEDS: Mometasone/Formoterol 120 PUFF INHALER INH SCH ×2 (06:58→19:35)
[2019-04-22] MEDS: Potassium Chloride 20 MEQ/100 ML PREMIX BAG IVPB SCH ×2 (07:19→11:45)
--- NOTE | 2019-04-22 08:16 | OP ---
DATE OF PROCEDURE: 04/21/2019 PREOPERATIVE DIAGNOSIS: Degenerative joint disease, right hip. POSTOPERATIVE DIAGNOSIS: Degenerative joint disease, right hip. PROCEDURE PERFORMED: Right total hip arthroplasty using a [place] Accolade II, stem size 5, with a +2.5 36 ceramic head, 56 mm Tritanium cup with a 36 mm 10-degree offset liner. INTERLOCKING PAVEMENT INSTALLER: Alex. BLOOD LOSS: 200. SPECIMEN: None. DRAINS: None. COMPLICATION: None. PROCEDURE IN DETAIL: After informed consent was obtained in the preoperative holding area, the patient was taken to the operative suite where general anesthesia was induced. The patient was then positioned in the lateral decubitus position. The hip was then prepped and draped in usual sterile fashion. The patient received preoperative antibiotics. Prior to incision, time-out was called and all members of the surgical team agreed upon site, surgeon, and patient. After this, a longitudinal incision was made directly over the trochanter, noted by palpation extending 2 fingerbreadths above and below the trochanter. The deeper subcutaneous layer was undermined with Bovie electrocautery. The iliotibial band was encountered and incised sharply and the plane below this was developed bluntly. A Charnley retractor was placed to hold this opened. The lateral aspect of the trochanter and the abductor muscles were encountered and then reflected anteriorly off the trochanter using Bovie electrocautery. Once this was completed, the anterior capsule was then encountered and identified and copious capsulotomy was carried out, exposing the femoral neck and head. Dislocation maneuver was then performed and an in situ provisional neck cut was then made using the oscillating saw. Attention was then turned to acetabular preparation and sequential reaming was carried out up to the appropriate diameter. A trial was then malleted into place with good firm resistance and no pullout. The permanent acetabular shell was then malleted squarely into place, as was the appropriate liner. Once completed, the wound was copiously irrigated and attention was then turned to femoral preparation. Flexion and external rotation were performed of the exposed thigh and femoral elevators were then placed at the proximal aspect of the wound. Canal finder was used to establish the length of the canal and sequential reaming was carried out, followed by broaching. Once the appropriate stability was established with the trial broaches with flexion, extension and rotational stability, we did trial with neutral and 2 mm offset incremental necks. Once the appropriate size was decided upon, with good stability noted with flexion, extension, internal and external rotation and shuck being negative, we removed the femoral trial broach and malletted into place the permanent prosthesis with good firm fit, which was also stable to rotation. Again, the hip felt very stable to flexion, extension, internal and external rotation. Leg lengths appeared near anatomic clinically and we were quite happy with prosthesis placement. Copious irrigation was then carried out through the entirety of the wound. Primary closure of the abductors was accomplished with interrupted #2 Vicryl [id number] stitches and the IT band was then closed with interrupted #2 Vicryl, oversewn with a #2 running barbed Quill stitch. Subcutaneous fascia was closed with running barbed Quill stitch and a subcuticular Monocryl barbed Quill stitch was used for skin closure and augmented with skin cement. A sterile dressing was applied. The procedure was terminated without any complication. All counts were correct. The patient was awakened in the operative suite and taken to the recovery room in stable condition. Job ID: [id number]
[2019-04-22] MEDS: Potassium Bicarbonate/Cit Ac 25 MEQ TAB PO SCH (08:55)
[2019-04-22] MEDS: Insulin Glargine 17 UNITS in Pre-Filled Syringe 1 EACH SC SCH ×2 (08:56→20:44)
[2019-04-22] MEDS: metFORMIN 500 MG TAB PO SCH ×2 (08:56→18:14)
[2019-04-22] MEDS: Aspirin 81 mg Enteric Coated Tablet PO SCH ×2 (08:56→20:43)
[2019-04-22] MEDS: Montelukast Sodium 10 mg Tablet PO SCH (08:56)
[2019-04-22] MEDS: Valsartan 80 MG TAB PO SCH ×2 (08:56→20:44)
[2019-04-22] MEDS: Cholecalciferol (Vitamin D3) 400 UNITS TAB PO SCH ×2 (08:56→20:43)
[2019-04-22] MEDS: Senokot S 8.6-50 MG TAB PO SCH ×2 (08:57→20:43)
[2019-04-22] MEDS: Calcium Carbonate 600 MG TAB PO SCH ×2 (08:57→20:44)
[2019-04-22] MEDS: Ferrous Gluconate 324 MG TAB PO SCH ×2 (08:57→20:44)
[2019-04-22] MEDS: Multivitamin W/ Minerals 1 TAB PO SCH (08:57)
[2019-04-22] MEDS ORDERED: MULTIVITAMIN PO SCH (09:00)
[2019-04-22] MEDS ORDERED: Fentanyl 100 MCG/2 ML VIAL SLOW IVP PRN ×2 (17:05→17:06)
[2019-04-22 17:39] LABS: Anion Gap 13 mmol/L (10-20); BUN (Urea Nitrogen) 19 mg/dL (8.4-25.7); Calc. Creatinine Clearance 128 mL/min (70-130); Calcium 9.2 mg/dL (7.8-10.44); Carbon Dioxide 26 mmol/L (23-31); Chloride 97 mmol/L (98-107); Estimated GFR-MDRD Greater than 90; Glucose 154 mg/dL (80-115); Potassium 3.4 mmol/L (3.5-5.1); Sodium 133 mmol/L (136-145)
[2019-04-22] MEDS ORDERED: Magnesium Citrate 300 ML BOT PO PRN (19:48)
[2019-04-22] MEDS ORDERED: Bisacodyl 10 MG SUPP PR PRN (19:48)
[2019-04-22] MEDS ORDERED: Polyethylene Glycol 3350 17 GM Packet PO PRN (19:48)
[2019-04-22] MEDS: Atorvastatin Calcium 40 MG TAB PO SCH (20:44)
[2019-04-22] MEDS: Venlafaxine XR 37.5 MG CAP PO SCH (20:44)
[2019-04-22] MEDS ORDERED: Vit A,C & E/Lutein/Minerals Tablet PO SCH (21:00)
[2019-04-23] MEDS: Acetaminophen 500 MG TAB PO SCH ×2 (00:13→05:19)
[2019-04-23] MEDS: Ketorolac Tromethamine 30 MG/ML VIAL IVP SCH ×2 (00:13→05:20)
[2019-04-23 05:59] LABS: Hemoglobin 11.2 g/dL (14.0-18.0); Mean Corpuscular HGB CONC 34.7 g/dL (32.0-36.0); Mean Corpuscular Hemoglobin 32.8 pg (27.0-31.0); Mean Corpuscular Volume 94.6 fL (78.0-98.0); Mean Platelet Volume 7.9 fL (7.4-10.4); Platelet Count 107 thou/uL (130-400); RBC Distribution Width 11.5 % (11.5-14.5); White Blood Cell (WBC) Count 3.7 thou/uL (4.8-10.8)
--- NOTE | 2019-04-23 06:39 | PDOC.FM ---
- Subjective Subjective: Pt states he is doing well this morning. He had some difficulty sleeping due to interruptions throughout the night. He reports soreness and constipation as his main complaints this morning. - Objective MAR Reviewed: Yes Vital Signs & Weight: Vital Signs (12 hours) Temp Pulse Resp BP BP BP Pulse Ox 04/23/19 04:07 99.9 F H 95 16 121/73 93 L 04/23/19 00:23 99.3 F 98 16 122/70 94 L 04/22/19 20:37 98.9 F 99 16 97/59 L 92 L 04/22/19 20:00 92 L 04/22/19 19:35 84 16 94 L Weight Admit Weight 99.79 kg Weight 99.79 kg I&O: 04/21/19 04/22/19 04/23/19 06:59 06:59 06:59 Intake Total 2210 2480 Output Total 1475 1450 Balance 735 1030 Result Diagrams: 04/23/19 05:20 04/22/19 17:11 Phys Exam - Physical Examination Constitutional: NAD HEENT: moist MMs Neck: no JVD Respiratory: no wheezing, clear to auscultation bilateral Cardiovascular: RRR, no significant murmur Gastrointestinal: soft, non-tender, positive bowel sounds mild distension Musculoskeletal: no edema, pulses present Neurological: moves all 4 limbs Psychiatric: A&O x 3 Skin: cap refill <2 seconds Dx/Plan (1) Status post total hip replacement, right Code(s): Z96.641 - PRESENCE OF RIGHT ARTIFICIAL HIP JOINT Status: Acute (2) Asthma Code(s): J45.909 - UNSPECIFIED ASTHMA, UNCOMPLICATED Status: Acute (3) Diabetes mellitus Code(s): E11.9 - TYPE 2 DIABETES MELLITUS WITHOUT COMPLICATIONS Status: Acute (4) HLD (hyperlipidemia) Code(s): E78.5 - HYPERLIPIDEMIA, UNSPECIFIED Status: Acute (5) HTN (hypertension) Code(s): I10 - ESSENTIAL (PRIMARY) HYPERTENSION Status: Acute - Plan Plan: This is a 68 yo male with a pmh of HTN, DM2, HLD, asthma Total hip replacement on the right, indications DJD POD 2 -Managed by Dr. De Paz -PT/OT HTN -Continue home valsartan, amlodipine, and chlorthalidone -Has remained stable HLD -Continue home atorvastatin DM2 -Continue home metformin -Plan to titrate insulin to effect. Goal blood glucose is 140-180 fasting and 2 hr post-prandial. Increasing levemir to 20 units BID. We will continue 7 units of humalog with every meal and titrate based on accuchecks -ACHS accuchecks, hypoglycemic protocol Asthma -Continue home albuterol, montelukast, dulera. Pt states that dulera has worked better than advair and wants to continue this after discharge Depression -Continue venlafaxine Hypokalemia -Replacing, will monitor
[2019-04-23] MEDS ORDERED: Insulin Glargine 20 UNITS in Pre-Filled Syringe 1 EACH SC SCH ×2 (06:45→21:00)
[2019-04-23] MEDS: Mometasone/Formoterol 120 PUFF INHALER INH SCH (08:16)
[2019-04-23] MEDS: HumaLOG 300 UNITS/3 ML VIAL SC SCH ×2 (08:49→12:05)
[2019-04-23] MEDS: metFORMIN 500 MG TAB PO SCH (08:50)
[2019-04-23] MEDS: Aspirin 81 mg Enteric Coated Tablet PO SCH (08:50)
[2019-04-23] MEDS: Potassium Bicarbonate/Cit Ac 25 MEQ TAB PO SCH (08:50)
[2019-04-23] MEDS: Cholecalciferol (Vitamin D3) 400 UNITS TAB PO SCH (08:50)
[2019-04-23] MEDS: Senokot S 8.6-50 MG TAB PO SCH (08:51)
[2019-04-23] MEDS: Montelukast Sodium 10 mg Tablet PO SCH (08:51)
[2019-04-23] MEDS: Valsartan 80 MG TAB PO SCH (08:51)
[2019-04-23] MEDS: Multivitamin W/ Minerals 1 TAB PO SCH (08:51)
[2019-04-23] MEDS: Calcium Carbonate 600 MG TAB PO SCH (08:51)
[2019-04-23] MEDS: Ferrous Gluconate 324 MG TAB PO SCH (08:52)
[2019-04-23 09:32] LABS: Anion Gap 14 mmol/L (10-20); BUN (Urea Nitrogen) 20 mg/dL (8.4-25.7); Calc. Creatinine Clearance 125 mL/min (70-130); Calcium 9.1 mg/dL (7.8-10.44); Carbon Dioxide 25 mmol/L (23-31); Chloride 99 mmol/L (98-107); Estimated GFR-MDRD Greater than 90; Glucose 197 mg/dL (80-115); Potassium 3.4 mmol/L (3.5-5.1); Sodium 135 mmol/L (136-145)
[2019-04-23 12:00] VITALS: BP 145/76; TEMP 98.8
[2019-04-23] MEDS ORDERED: Acetaminophen 325 MG TAB PO PRN (12:00)
--- NOTE | 2019-04-23 13:23 | PQF ---
DEANNE HARTCATE KEARNEY * r [id number] [facility]- [id number] CLINICAL DOCUMENTATION IMPROVEMENT CLARIFICATION FORM: ICD-10 Updated PLEASE DO AN ADDENDUM TO THE PROGRESS NOTE WITH ANY DOCUMENTATION UPDATES OR ADDITIONS AND CARRY THROUGH TO DC SUMMARY. THANK YOU. DATE: 04/23/2019 ATTN:DR. Jennifer GRAY Please exercise your independent, professional judgment in responding to the clarification form. Clinical indicators are provided on the bottom of this form for your review. Please check appropriate box(s): [ ] Hyponatremia please specify etiology, if known [ ] Hyponatremia due to SIADH (Syndrome of Inappropriate Secretion of Antidiuretic Hormone) [ x ] Other diagnosis Sodium is WNL when corrected for the glucose [ ] Unable to determine In addition, please specify: Present on Admission (POA): [ ] Yes [ ] No [ ] Unable to determine [x] this was not a true problem CLINICAL INDICATORS - SIGNS / SYMPTOMS / LABS / RESULTS AND LOCATION IN EMR 04/22 SODIUM 134 > 133 04/23 SODIUM 135 RISK: DM, HTN, RECENT TOTAL HIP ARTHROPLASTY (MARINA /MILLICENT ) 04/22 TREATMENTS: SERIAL LABS ( 04/22-PRESENT) NS IV FLUIDS (04/22-PRESENT) THANK YOU! SHARLENE (This form is maintained as a part of the permanent medical record) 2014 [employer] All Rights Reserved [email or web address] [phone] MTDD
[2019-04-23] MEDS: Sodium Chloride 0.9% 1,000 ML IV SCH (15:53)
[2019-04-23] MEDS ORDERED: Insulin Glargine 17 UNITS in Pre-Filled Syringe 1 EACH SC SCH (21:00)
== END 2019-04-23 12:50 | disposition home or self-care (01) | DRG 470 ==
LOC: SJJU 04-21 06:48
PROVIDERS: ADMIT Orthopaedic Surgery; ATTEND Orthopaedic Surgery
PROC: 0SR903Z Replacement of Right Hip Joint with Ceramic Synthetic Substitute, Open Approach (ICD-10-PCS; principal; 2019-04-21)
DX: M16.11 Unilateral primary osteoarthritis, right hip (principal); I10 Essential (primary) hypertension; E11.9 Type 2 diabetes mellitus without complications; E78.5 Hyperlipidemia, unspecified; J45.909 Unspecified asthma, uncomplicated; F32.9 Major depressive disorder, single episode, unspecified; E87.6 Hypokalemia; Z88.8 Allergy status to other drugs, medicaments and biological substances; Z79.899 Other long term (current) drug therapy; Z79.82 Long term (current) use of aspirin; Z79.51 Long term (current) use of inhaled steroids; Z79.4 Long term (current) use of insulin; Z96.653 Presence of artificial knee joint, bilateral
CPT/HCPCS: 36415; 36416; 80048; 80053; 83036; 84681; 85027; J0131; J0670; J0690; J1815; J1885; J2001; J2250; J2405; J2704; J3010; J3490

== ENCOUNTER 2020-03-08 12:29 | Outpatient (CLI) | payer MEDICARE ==
[~2020-03-08 12:29] MED LIST changes: -Fentanyl 100 MCG/2 ML VIAL ONE; -Iopamidol 370 76% 100 ML VIAL ONE; -Lidocaine 1% (PF) 30 ML VIAL ONE; +Magnevist 469MG/ML 20 ML VIAL ONE; -Midazolam HCl 2 mg/2 ml Vial ONE; -Nitroglycerin 100MG/250ML BOT 250 ML ONE
[2020-03-08 13:15] LABS: Estimated GFR-MDRD - POC Greater than 90
--- NOTE | 2020-03-08 14:07 | MRI ---
MRI of thecervical spine: 03/08/2020 COMPARISON:None available HISTORY:Cervical radiculopathy TECHNIQUE: Multiplanar multisequence MR imaging of thecervical spine without contrast Findings:The sagittal STIR imaging demonstrates no focal area of osseous marrow edema. Anterior disce ctomy and fusion hardware noted at C5-6. Mild anterolisthesis at C5-6 and C6-7 measuring 4 mm and 3 mm respectively. C2-3: Mild disc bulge. Bilateral facet and uncovertebral osteophyte formation. Moderate bilateral jamie ral foraminal stenosis. No central canal stenosis. C3-4: There is disc space narrowing and disc desiccation with disc bulge partially effacing the ventr al thecal sac with mild central canal stenosis. Moderate bilateral neural foraminal stenosis, left greater than right, secondary to facet and uncovertebral osteophyte formation. C4-5: Disc space narrowing with disc desiccation and mild disc bulge with mild central canal stenosis . Mild right and moderate left neural foraminal stenosis with bilateral facet and uncovertebral osteophyte formation. C5-C6: Motion artifact and hardware artifact limits detailed assessment. No significant central canal stenosis. Mild left and moderate right neural foraminal stenosis. C6-7: Bilateral facet and uncovertebral osteophyte formation. Disc space narrowing with disc desiccat ion. Moderate/severe bilateral neural foraminal stenosis, with mild central canal stenosis. C7-T1: Disc space and with disc desiccation and mild disc bulge. Mild central canal stenosis. Mild bi lateral facet hypertrophy with moderate right and mild left neural foraminal stenosis. No focal area of abnormal signal intensity identified within the cervical cord. IMPRESSION: Postoperative change with multilevel cervical spine degenerative change as detailed above .
--- NOTE | 2020-03-08 15:32 | MRI ---
Exam: MRI thoracic spine without contrast HISTORY: Back pain for years, worsening for the last several months. Thoracic radiculopathy. FINDINGS: Appropriate T1 marrow signal intensity of the thoracic vertebrae. Thoracic spine vertebral body heigh t is maintained. There is no fracture. No significant STIR hyperintensity to suggest vertebral body edema ligament surgery. There are intrinsic T1 and T2 hyperintensities at T3, T6 and T9. There are re mote Schmorl's nodes at the inferior endplate of T10 and superior endplate of T12. No significant STIR hyperintensity to suggest ligamentous injury or vertebral body edema. Visualized mediastinum, lung parenchyma, solid organs and paraspinal muscles have appropriate size an d signal intensity. The thoracic cord has a normal size and signal intensity. No cord malacia. No cord expansion. No T2 h yperintensity in the cord. Conus medullaris terminates at the mid L1 level T1-T2: Small left and right paracentral disc bulges. Mild central canal stenosis T2-T3: No significant posterior disc abnormality T3-T4: Left paracentral disc herniation. Mass effect left hemicord. Mild central canal stenosis T4-T5: There appears to be prominent soft tissue density compatible with ligament calcification/ligam entum flavum thickening. The mid T5 level, there is a T2 hyperintense focus measuring 0.8 x 1.7 cm compatible with a epidural cyst. T5-T6: Mild ligamentum flavum thickening and facet hypertrophy. Mild central canal stenosis. T6-T7: Disc desiccation with mild loss of disc space height. Broad-based disc bulge with central disc herniation. Mild central canal stenosis T7-T8: Disc desiccation with mild loss of disc space height. Small right paracentral disc herniation. No significant central canal stenosis. T8-T9, T9-T10: No significant central canal stenosis. Mild posterior disc abnormalities T10-T11: Left and right paracentral disc herniations. Mild central canal stenosis T11-T12: No significant central canal stenosis T12-L1: Broad-based disc bulge. Mild central canal stenosis Throughout the thoracic spine, neural foramina are patent IMPRESSION: 1, Multilevel degenerative changes of the thoracic spine. 2. No abnormal signal intensity of the thoracic vertebrae 3. Possible calcification with adjacent fluid collection involving the posterior epidural space from T4 through T5. Correlate for previous trauma or possible intervention. Cystic lesion is benign in appearance.. Correlation made with PET imaging on 07/23/2015 does demonstrate prominent calcification along the posterior epidural space at T4-T5. Transcribed Date/Time: 03/08/2020 4:54 PM
--- NOTE | 2020-03-08 16:31 | MRI ---
MRI LUMBAR SPINE WITH AND WITHOUT CONTRAST: DATE: 03/08/2020 HISTORY: 69-year-old male with ICD-10: M62.81 lower extremity weakness and low back pain. COMPARISON: None. TECHNIQUE: Multiple sequences obtained in axial and sagittal planes, pre and post IV injection of gadolinium-bas ed contrast agent: 20 mL MultiHance. FINDINGS: There are five lumbar-type vertebrae. There is no vertebral body collapse, but there is mild anterior wedge loss of height of T12, and mild diffuse loss of height of L1, chronic. There is disc desiccati on, moderate disc space narrowing, and end plate irregularities with multiple end plate small defects , at all visualized levels from T12-L1 through L5-S1. There are broad disc bulges and/or disc-osteoph ytic bar complexes at all levels, protruding into the spinal canal, neural foramina, and prevertebral spaces, at all levels mentioned above. The conus medullaris terminates at L1-2. There are Modic Typ e I end plate marrow changes at L1-2, L2-3, L3-4, and L4-5. There are Modic Type II end plate marro w changes in addition to the Type I changes at L3-4 and L4-5. There are degenerative changes between hypertrophic, kissing spinous processes (Baastrup's disease) at L2-3, L3-4, and L4-5. Findings by individual levels: T12-L1: Mild central spinal canal stenosis. Small posterior epidural fat pad. Mild to moderate theca l sac stenosis. Mild to moderate bilateral neural foraminal stenosis. L1-2: In addition to the diffuse disc bulge, there is a small focal central disc extrusion with slig ht inferior and slight superior migrations of extruded disc material additionally indenting the ventr al aspect of the thecal sac. Mild to moderate central spinal canal stenosis. Small posterior epidural fat pad. Moderate thecal sac stenosis. Mild bilateral neural foraminal stenosis. L2-3: The disc bulge is large, deeply indenting the ventral aspect of the thecal sac. Moderate ligam entum flavum thickening encroaches upon the posterior aspect of the spinal canal. Small posterior epi dural fat pad. Moderate to severe central spinal canal stenosis. Severe thecal sac stenosis with [place] of cauda equina and effacement of CSF signal. Mild right and moderate left neural foraminal sten osis. L3-4: Left hemilaminectomy defect. Severe right facet DJD. Moderate to severe bilateral neural andre inal stenosis. Broadly thickened right ligamentum flavum deeply indents the right side of the thecal sac. There is enhancing postsurgical scar tissue in the left anterior aspect of the spinal canal effa cing that portion of the thecal sac. The thecal sac is distorted by all of the above described findin gs. There is mild to moderate thecal sac stenosis. L4-5: Left hemilaminectomy defect. Very thickened and calcified right ligamentum flavum deeply inden ts the right side of the thecal sac. The prominent disc bulge indents the ventral aspect of the theca l sac. There is severe right facet DJD and moderate left facet DJD. Severe right neural foraminal nick nosis and moderate to severe left neural foraminal stenosis. Moderate to severe central spinal canal stenosis. L5-S1: Moderate bilateral facet DJD. Moderate right neural foraminal stenosis. Moderate to severe le ft neural foraminal stenosis. Lateral recess stenosis bilaterally. Otherwise no central spinal canal stenosis. IMPRESSION: 1. Lumbar spondylosis with multilevel high grade degenerative disc disease and facet osteoarthrosis. 2. Status post left hemilaminectomies at L3-4 and L4-5. 3. High grade central spinal canal stenosis at L2-3 and L4-5. 4. Multilevel high grade bilateral neural foraminal stenosis. MARISA Lopez POS: [place]
== END 2020-03-08 12:30 | disposition home or self-care (01) ==
LOC: BICMRI 12:29
PROVIDERS: ATTEND Neurological Surgery
DX: M47.22 Other spondylosis with radiculopathy, cervical region (principal); M47.24 Other spondylosis with radiculopathy, thoracic region; R29.898 Other symptoms and signs involving the musculoskeletal system; M47.816 Spondylosis without myelopathy or radiculopathy, lumbar region; M51.36 Other intervertebral disc degeneration, lumbar region; M48.061 Spinal stenosis, lumbar region without neurogenic claudication; M47.817 Spondylosis without myelopathy or radiculopathy, lumbosacral region; M48.07 Spinal stenosis, lumbosacral region; M48.05 Spinal stenosis, thoracolumbar region; M85.68 Other cyst of bone, other site; Z98.890 Other specified postprocedural states; Z98.1 Arthrodesis status
CPT/HCPCS: 72141; 72146; 72158; 82565; A9579

== ENCOUNTER 2020-04-19 06:16 | Outpatient (CLI) | payer MEDICARE, OTHER ==
[2020-04-19 11:24] LABS: Hemoglobin 13.5 g/dL (14.0-18.0); Mean Corpuscular HGB CONC 33.3 G/DL (32.0-36.0); Mean Corpuscular Hemoglobin 30.7 PG (27.0-33.0); Mean Corpuscular Volume 92.3 fl (80.0-100.0); Mean Platelet Volume 11.1 fl (7.4-10.4); Platelet Count 167 10x3/uL (130-400); RBC Distribution Width 12.6 % (11.5-14.5); White Blood Cell (WBC) Count 5.8 10x3/uL (4.5-11.0)
[2020-04-19 11:32] LABS: Anion Gap 14 mmol/L (10-20); BUN (Urea Nitrogen) 17 mg/dL (8.4-25.7); Calc. Creatinine Clearance 0 mL/min (70-130); Calcium 9.4 mg/dL (7.8-10.44); Carbon Dioxide 29 mmol/L (23-31); Chloride 100 mmol/L (98-107); Glucose 106 mg/dL (80-115); Potassium 4.1 mmol/L (3.5-5.1); Sodium 139 mmol/L (136-145)
== END 2020-04-19 06:17 | disposition home or self-care (01) ==
LOC: LABBT 06:16
PROVIDERS: ATTEND Neurological Surgery
DX: Z01.818 Encounter for other preprocedural examination (principal); M48.061 Spinal stenosis, lumbar region without neurogenic claudication
CPT/HCPCS: 80048; 85027; 93005; 93010

== ENCOUNTER 2020-04-22 06:02 | Day surgery (SDC) | payer MEDICARE, OTHER ==
[2020-04-21 09:42] VITALS: BMI 29.8
--- NOTE | 2020-04-21 22:07 | HP ---
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 He returns now with progressive bilateral lower extremity weakness as well as some surgery abnormality around the T12 segment of the spine. He does have prior known hip and knee issues that he has been treating with Orthopedics. However, the recommendation before progressing down the pathway of further treatment there will be to pursue a lumbar spine treatment. The MRI reveals likely significant stenosis between L2-3 and to the right L4-L5. He hopes to discuss possible surgical intervention. PAST MEDICAL HISTORY: Hyperlipidemia, anxiety, hypertension. CURRENT MEDICATIONS: 1. Singulair. 2. Klor-Con. 3. Amlodipine. 4. Chlorthalidone. 5. Tadalafil. 6. Valsartan. 7. Lantus. 8. Humalog. 9. Effexor. 10. Atorvastatin. ALLERGIES: NO KNOWN DRUG ALLERGIES. PAST SURGICAL HISTORY: Right total hip replacement. PHYSICAL EXAMINATION: Deferred for telehealth visit. ASSESSMENT: Lumbar radiculopathy. PLAN: Dr. Aguirre met with the patient, reviewed imaging, and advocated for a L2-L3 decompression with a right L4-L5 decompression. He explained to the patient the risks, benefits, and alternatives to the procedure. The patient expressed understanding and elected to move forward with surgery as discussed. I do believe the patient is mentally competent and capable of making medical decisions for himself. We will move forward with surgery as planned. Job ID: [id number]
[2020-04-22] MEDS ORDERED: EPINEPHrine 1 MG/ML AMP ONE (06:14)
[2020-04-22] MEDS ORDERED: Bupivacaine PF 0.5% 30 ML VIAL ONE (06:14)
[2020-04-22] MEDS ORDERED: Thrombin 5000 UNITS/5 ML VIAL ONE (06:14)
[2020-04-22] MEDS ORDERED: Fentanyl 100 MCG/2 ML VIAL ONE (06:38)
[2020-04-22] MEDS ORDERED: Famotidine/PF 20 mg/2ml Vial ONE (06:39)
[2020-04-22] MEDS ORDERED: Phenylephrine 10 MG/ML VIAL ONE (06:39)
[2020-04-22] MEDS ORDERED: SUGAMMADEX SODIUM 500 MG/5 ML VIAL ONE (06:39)
[2020-04-22] MEDS ORDERED: Tamsulosin HCl 0.4 MG CAP ONE (09:50)
[2020-04-22] MEDS ORDERED: Ketorolac Tromethamine 30 MG/ML VIAL ONE (10:02)
[2020-04-22] MEDS ORDERED: Ondansetron PF 4 MG/2 ML Vial ONE (10:02)
[2020-04-22] MEDS ORDERED: Rocuronium Bromide 10 MG/ML (10ML VIAL) ONE (10:02)
[2020-04-22] MEDS ORDERED: PHENYLEPHRINE-NS 100 MCG/ML 10 ML SYRINGE ONE (10:02)
[2020-04-22] MEDS ORDERED: PROPOFOL 200 MG/20 ML VIAL ONE (10:02)
[2020-04-22] MEDS ORDERED: Metoclopramide HCl 10 MG/2 ML VIAL ONE (10:02)
[2020-04-22] MEDS ORDERED: Lidocaine 1% PF 5 ML VIAL ONE (10:02)
[2020-04-22] MEDS ORDERED: ePHEDrine 50 MG/ML VIAL ONE (10:02)
[2020-04-22] MEDS ORDERED: Dexamethasone 20 MG/5 ML VIAL ONE (10:02)
[2020-04-22] MEDS ORDERED: Insulin Regular 300 UNITS/3 ML VIAL ONE (11:30)
--- NOTE | 2020-04-22 16:48 | OP ---
DATE OF PROCEDURE: 04/22/2020 FLIGHT RADIO OFFICER: Hemant Buenrostro PA-C INDICATION: Pain. DIAGNOSES: Lumbar stenosis, lumbar radiculopathy. PROCEDURES PERFORMED: L2-L3 lumbar decompression, separately right L4-L5 hemilaminectomy, medial facetectomy, synovial cyst resection. ANESTHESIA: General. DESCRIPTION OF PROCEDURE: The patient was brought into the operating room and placed under general anesthesia. He was flipped from supine to prone position on the operating room table. A linear incision was planned over L2-L3 and over L4-L5. Both areas encompassed prior incisional locations. After prepping and draping and after an appropriate preoperative pause, the incision at L2-L3 was created. The soft tissues were swept away from midline. A self-retaining retractor was placed in the wound for optimal exposure. After confirming the appropriate level with C-arm fluoroscopy, an Adson rongeur was used to remove the spinous process along the inferior aspect of L2, to the superior aspect of L3. High-speed cutting drill bit as well as 2, 3, and 4 mm Kerrisons were then used to perform a laminectomy of the L2-L3 segment. The laminectomy was extended laterally to encompass the medial aspect of the facet joints in order to further decompress the lateral recesses. After completing the decompression, the L2-L3 redirected our attention at the L4-L5 segment, where a separate incision was created. The soft tissues were swept away from midline. A self-retaining retractor was placed for optimal exposure and a C-arm image obtained to confirm the appropriate level. High-speed cutting drill bit as well as 2, 3, and 4 mm Kerrisons were then used to perform a hemilaminectomy along the inferior aspect of L4 and the superior aspect of L5. Large medial projecting facet joint, which included a partially-calcified synovial cyst were resected in order to decompress the lateral recess at L4-L5 on the right side. After completing the decompression, both incisions were irrigated significantly. Hemostasis was maintained throughout. Both incisions were then closed in anatomic layers, and a pressure dressings were applied. There were no known procedural complications. Job ID: [id number]
== END 2020-04-22 12:05 | disposition home or self-care (01) ==
LOC: SDC 06:02
PROVIDERS: ATTEND Neurological Surgery
PROC: 01NB0ZZ Release Lumbar Nerve, Open Approach (ICD-10-PCS; principal; 2020-04-22)
DX: M48.061 Spinal stenosis, lumbar region without neurogenic claudication (principal); M54.16 Radiculopathy, lumbar region; M71.38 Other bursal cyst, other site; E78.5 Hyperlipidemia, unspecified; F41.9 Anxiety disorder, unspecified; I10 Essential (primary) hypertension; Z79.4 Long term (current) use of insulin; Z79.899 Other long term (current) drug therapy; Z88.8 Allergy status to other drugs, medicaments and biological substances
CPT/HCPCS: 76000; J0171; J0690; J1100; J1815; J1885; J2370; J2405; J2704; J2765; J3010; J3490; S0020; S0028

== ENCOUNTER 2021-03-06 08:37 | Outpatient (CLI) | payer MEDICARE ==
[2021-03-06 10:00] LABS: Bilirubin Neg (Negative); Blood, Urine Negative (Negative); Clarity Clear (Clear); Glucose, Urine (Dipstick) Normal (Negative); Ketone, Urine Negative (Negative); Leukocyte Negative (Negative); Nitrite Negative (Negative); Protein, Urine (Dipstick) Negative (Neg-Trace); Urobilinogen Normal mg/dL (Less than 2)
[2021-03-06 10:06] LABS: #Eosinphils 0.3 10x3/uL (0.0-0.5); #Monocytes 0.6 10x3/uL (0.0-1.1); #Neutrophils 4.4 10x3/uL (1.5-8.4); %Basophils 0.4 % (0.0-2.0); %Eosinophils 4.9 % (0.0-6.0); %Lymphocytes 20.3 % (18.0-47.0); %Monocytes 8.9 % (0.0-10.0); %Neutrophils 65.2 % (40.0-75.0); Hemoglobin 14.2 g/dL (13.5-17.5); Mean Corpuscular HGB CONC 33.8 g/dL (32.0-36.0); Mean Corpuscular Hemoglobin 31.3 pg (27.0-33.0); Mean Corpuscular Volume 92.5 fl (81.2-95.1); Mean Platelet Volume 10.1 fl (7.4-10.4); Platelet Count 177 10x3/uL (150-450); RBC Distribution Width 12.7 % (11.5-14.5); Red Blood Cell (RBC) Count 4.54 10x6/uL (4.32-5.72); White Blood Cell (WBC) Count 6.7 10x3/uL (3.5-10.5)
[2021-03-06 10:08] LABS: Bacteria/HPF None Seen HPF (None Seen); RBC/HPF 0-3 HPF (0-3); Squamous Epithelial None Seen HPF (0-3); WBC/HPF None Seen HPF (0-3)
[2021-03-06 10:23] LABS: Prothrombin Time 11.5 sec (9.5-12.1)
[2021-03-06 10:41] LABS: Anion Gap 13 mmol/L (10-20); BUN (Urea Nitrogen) 14 mg/dL (8.4-25.7); Calc. Creatinine Clearance 0 mL/min (70-130); Calcium 9.2 mg/dL (7.8-10.44); Carbon Dioxide 28 mmol/L (23-31); Chloride 100 mmol/L (98-107); Glucose 106 mg/dL (80-115); Potassium 3.4 mmol/L (3.5-5.1); Sodium 138 mmol/L (136-145)
[2021-03-06 17:47] LABS: SARS-CoV-2 PCR by NAA Not Detected (NotDetected)
== END 2021-03-06 08:38 | disposition home or self-care (01) ==
LOC: LABBT 08:37
PROVIDERS: ATTEND Orthopaedic Surgery
DX: Z01.818 Encounter for other preprocedural examination (principal); M16.12 Unilateral primary osteoarthritis, left hip; Z20.822 Contact with and (suspected) exposure to COVID-19
CPT/HCPCS: 80048; 81001; 85025; 85610; 87081; U0003; U0005; 93005; 93010

== ENCOUNTER 2021-03-07 05:46 | Inpatient (IN) | payer MEDICARE ==
[2021-03-03 15:00] VITALS: BMI 32.5
[2021-03-07] MEDS ORDERED: Fentanyl 100 MCG/2 ML VIAL ONE ×4 (06:07→09:48)
[2021-03-07] MEDS ORDERED: Midazolam HCl 2 mg/2 ml Vial ONE ×2 (06:07→06:44)
[2021-03-07] MEDS ORDERED: ceFAZolin 2 GM/DEX 5% 100 ML BAG ONE (06:51)
[2021-03-07] MEDS ORDERED: Tranexamic Acid 1,000 MG/10 ML VIAL ONE ×2 (06:51→06:52)
[2021-03-07] MEDS ORDERED: diphenhydrAMINE 25 MG CAP PO PRN (06:52)
[2021-03-07] MEDS ORDERED: Fentanyl 100 MCG/2 ML VIAL SLOW IVP PRN (06:52)
[2021-03-07] MEDS ORDERED: HYDROcodone/Acetaminophen 10/325 mg Tablet PO PRN ×2 (06:52)
[2021-03-07] MEDS ORDERED: Ondansetron PF 4 MG/2 ML Vial IVP PRN (06:52)
[2021-03-07] MEDS ORDERED: Promethazine HCl 25 MG/ML VIAL IM PRN ×2 (06:52→08:16)
[2021-03-07] MEDS ORDERED: Zolpidem Tartrate 5 MG TAB PO PRN (06:52)
[2021-03-07] MEDS ORDERED: Fluticasone Propionate Nasal Spray 16 gm Bottle NASAL PRN (06:53)
[2021-03-07] MEDS ORDERED: Sodium Chloride 0.9% 100 ML ONE (06:56)
[2021-03-07] MEDS ORDERED: Vancomycin 1.5 GRAM/300 ML BAG 1.5 GM in Premix Bag 1 BAG IVPB SCH (07:15)
[2021-03-07] MEDS ORDERED: Rocuronium Bromide 10 MG/ML (10ML VIAL) ONE (07:16)
[2021-03-07] MEDS ORDERED: ePHEDrine 50 MG/ML VIAL ONE (07:16)
[2021-03-07] MEDS ORDERED: PHENYLEPHRINE-NS 100 MCG/ML 10 ML SYRINGE ONE (07:16)
[2021-03-07] MEDS ORDERED: Ondansetron PF 4 MG/2 ML Vial ONE (07:16)
[2021-03-07] MEDS ORDERED: Lidocaine 1% PF 5 ML VIAL ONE (07:16)
[2021-03-07] MEDS ORDERED: PROPOFOL 200 MG/20 ML VIAL ONE (07:16)
[2021-03-07] MEDS ORDERED: Bupivacaine HCl 0.5%/Epinephrine 1:200,000/PF 30 ml Vial ONE (07:16)
[2021-03-07] MEDS ORDERED: Glycopyrrolate 0.2 MG/ML 5 ML SYRINGE ONE (07:16)
[2021-03-07] MEDS ORDERED: Albuterol 200 PUFF (6.7GM INHALER) INH PRN (07:34)
[2021-03-07] MEDS ORDERED: IMIQUIMOD 5% TOP SCH (08:15)
[2021-03-07] MEDS ORDERED: Promethazine HCl 25 MG/ML VIAL IVPB PRN (08:16)
[2021-03-07] MEDS ORDERED: Ondansetron HCl/PF 4 MG/2 ML Vial IVP PRN (08:16)
[2021-03-07] MEDS ORDERED: Bupivacaine PF 0.5% 30 ML VIAL ONE (08:17)
[2021-03-07] MEDS ORDERED: MULTIVITAMIN PO SCH (09:00)
[2021-03-07] MEDS ORDERED: Tadalafil [Cialis] 5 MG Tablet PO SCH (09:00)
[2021-03-07] MEDS ORDERED: Aspirin 81 mg Enteric Coated Tablet PO SCH (09:00)
[2021-03-07] MEDS ORDERED: Promethazine HCl 25 MG/ML VIAL ONE (09:48)
[2021-03-07] MEDS ORDERED: HYDROmorphone 0.5 MG/0.5 ML SYRINGE ONE (10:02)
[2021-03-07] MEDS ORDERED: HumaLOG 300 UNITS/3 ML VIAL SC PRN (12:11)
[2021-03-07] MEDS ORDERED: Dextrose 50% Abboject 50 ML SYRINGE SLOW IVP PRN (12:11)
[2021-03-07] MEDS ORDERED: Dextrose 5% in Water 1,000 ML IV PRN (12:11)
[2021-03-07] MEDS: ceFAZolin Sodium/D5W 2 GM in Premix Bag 1 BAG IVPB SCH ×2 (14:58→22:29)
[2021-03-07] MEDS: Ketorolac Tromethamine 30 MG/ML VIAL IVP SCH ×3 (15:00→22:28)
[2021-03-07] MEDS: Aspirin 81 mg Enteric Coated Tablet PO SCH ×2 (17:28→20:13)
[2021-03-07] MEDS: Potassium Chloride 20 MEQ TAB PO SCH (17:28)
[2021-03-07] MEDS: Sodium Chloride 0.9% 1,000 ML IV SCH ×2 (17:28→20:13)
[2021-03-07] MEDS: Amlodipine 5 MG TAB PO SCH (17:28)
[2021-03-07] MEDS: Calcium Carbonate 600 MG + Vit D TAB PO SCH ×2 (17:29→20:12)
[2021-03-07] MEDS: Valsartan 80 MG TAB PO SCH ×2 (17:29→20:13)
[2021-03-07] MEDS: Lantus 1000 UNITS/10 ML VIAL SC SCH ×2 (17:29→20:26)
[2021-03-07] MEDS: Chlorthalidone 25 MG TAB PO SCH (17:29)
[2021-03-07] MEDS: HumaLOG 300 UNITS/3 ML VIAL SC PRN (17:42)
[2021-03-07] MEDS: Mometasone 200 MCG/Formoterol 5 MCG 120 PUFF INHALER INH SCH (18:18)
[2021-03-07] MEDS: Famotidine 20 MG TAB PO SCH (20:12)
[2021-03-07] MEDS: Venlafaxine HCl XR 75 MG CAP PO SCH (20:12)
[2021-03-07] MEDS: Atorvastatin Calcium 40 MG TAB PO SCH (20:12)
[2021-03-07] MEDS: Vit A,C & E/Lutein/Minerals Tablet PO SCH (20:13)
[2021-03-07] MEDS: Fentanyl 100 MCG/2 ML VIAL SLOW IVP PRN (20:14)
[2021-03-08] MEDS: Fentanyl 100 MCG/2 ML VIAL SLOW IVP PRN (03:21)
[2021-03-08] MEDS: Sodium Chloride 0.9% 1,000 ML IV SCH ×3 (03:23→22:03)
[2021-03-08 05:47] LABS: Hemoglobin 12.6 g/dL (14.0-18.0); Mean Corpuscular HGB CONC 35.1 g/dL (32.0-36.0); Mean Corpuscular Hemoglobin 33.6 pg (27.0-31.0); Mean Corpuscular Volume 95.7 fL (78.0-98.0); Mean Platelet Volume 7.6 fL (7.4-10.4); Platelet Count 157 thou/uL (130-400); RBC Distribution Width 11.8 % (11.5-14.5); Red Blood Cell (RBC) Count 3.75 mill/uL (4.70-6.10)
[2021-03-08] MEDS: Ketorolac Tromethamine 30 MG/ML VIAL IVP SCH ×3 (06:05→20:39)
[2021-03-08] MEDS: Mometasone 200 MCG/Formoterol 5 MCG 120 PUFF INHALER INH SCH ×2 (06:49→18:35)
[2021-03-08] MEDS: Ferrous Gluconate 324 MG TAB PO SCH ×2 (09:12→16:12)
[2021-03-08] MEDS: Senokot S 8.6-50 MG TAB PO SCH ×2 (09:13→20:25)
[2021-03-08] MEDS: Aspirin 81 mg Enteric Coated Tablet PO SCH ×2 (09:13→20:26)
[2021-03-08] MEDS: Multivitamin W/ Minerals 1 TAB PO SCH (09:13)
[2021-03-08] MEDS: Famotidine 20 MG TAB PO SCH ×2 (09:13→20:26)
[2021-03-08] MEDS: Amlodipine 5 MG TAB PO SCH (09:14)
[2021-03-08] MEDS: Calcium Carbonate 600 MG + Vit D TAB PO SCH ×2 (09:16→20:26)
[2021-03-08] MEDS: Valsartan 80 MG TAB PO SCH ×2 (09:16→20:26)
[2021-03-08] MEDS: Potassium Chloride 20 MEQ TAB PO SCH (09:16)
[2021-03-08] MEDS: Lantus 1000 UNITS/10 ML VIAL SC SCH ×2 (09:19→20:26)
[2021-03-08] MEDS: HumaLOG 300 UNITS/3 ML VIAL SC PRN (09:21)
[2021-03-08] MEDS ORDERED: Fentanyl 100 MCG/2 ML VIAL SLOW IVP PRN ×3 (09:48→09:50)
[2021-03-08] MEDS ORDERED: Fentanyl 100 MCG/2 ML VIAL SLOW IVP SCH (10:00)
[2021-03-08] MEDS: Chlorthalidone 25 MG TAB PO SCH (10:26)
[2021-03-08] MEDS: Acetaminophen 325 MG TAB PO PRN (16:12)
[2021-03-08] MEDS: Venlafaxine HCl XR 75 MG CAP PO SCH (20:26)
[2021-03-08] MEDS: Atorvastatin Calcium 40 MG TAB PO SCH (20:26)
[2021-03-08] MEDS: Vit A,C & E/Lutein/Minerals Tablet PO SCH (20:26)
[2021-03-09] MEDS: Acetaminophen 325 MG TAB PO PRN (00:16)
[2021-03-09] MEDS: Ketorolac Tromethamine 30 MG/ML VIAL IVP SCH (05:27)
[2021-03-09] MEDS: Mometasone 200 MCG/Formoterol 5 MCG 120 PUFF INHALER INH SCH (06:54)
[2021-03-09 07:53] LABS: #Eosinphils 0.3 thou/uL (0.0-0.7); #Monocytes 0.4 thou/uL (0.11-0.59); #Neutrophils 3.4 thou/uL (1.40-6.50); %Basophils 0.2 % (0.0-1.0); %Eosinophils 5.7 % (0.0-10.0); %Lymphocytes 19.9 % (21.0-51.0); %Monocytes 8.4 % (0.0-10.0); %Neutrophils 65.8 % (42.0-75.0); Hemoglobin 12.5 g/dL (14.0-18.0); Mean Corpuscular HGB CONC 35.8 g/dL (32.0-36.0); Mean Corpuscular Hemoglobin 33.9 pg (27.0-31.0); Mean Corpuscular Volume 94.6 fL (78.0-98.0); Mean Platelet Volume 7.2 fL (7.4-10.4); Platelet Count 168 thou/uL (130-400); RBC Distribution Width 11.7 % (11.5-14.5); White Blood Cell (WBC) Count 5.1 thou/uL (4.8-10.8)
[2021-03-09 08:16] LABS: ALT (SGPT) 23 U/L (8-55); AST (SGOT) 34 U/L (5-34); Albumin 3.4 g/dL (3.4-4.8); Alkaline Phosphatase 59 U/L (40-110); Anion Gap 10 mmol/L (10-20); BUN (Urea Nitrogen) 17 mg/dL (8.4-25.7); Bilirubin, Total 1.1 mg/dL (0.2-1.2); Calc. Creatinine Clearance 147 mL/min (70-130); Calcium 8.6 mg/dL (7.8-10.44); Carbon Dioxide 31 mmol/L (23-31); Chloride 100 mmol/L (98-107); Globulin 2.1 g/dL (2.4-3.5); Glucose 105 mg/dL (80-115); Potassium 3.4 mmol/L (3.5-5.1); Protein, Total 5.5 g/dL (5.8-8.1); Sodium 138 mmol/L (136-145)
[2021-03-09 08:27] VITALS: BP 123/72; TEMP 97.8
[2021-03-09] MEDS: Amlodipine 5 MG TAB PO SCH (08:57)
[2021-03-09] MEDS: Valsartan 80 MG TAB PO SCH (08:58)
[2021-03-09] MEDS: Lantus 1000 UNITS/10 ML VIAL SC SCH (08:58)
[2021-03-09] MEDS: Potassium Chloride 20 MEQ TAB PO SCH (08:59)
[2021-03-09] MEDS: Aspirin 81 mg Enteric Coated Tablet PO SCH (09:00)
[2021-03-09] MEDS: Senokot S 8.6-50 MG TAB PO SCH (09:00)
[2021-03-09] MEDS: Calcium Carbonate 600 MG + Vit D TAB PO SCH (09:00)
[2021-03-09] MEDS: Famotidine 20 MG TAB PO SCH (09:00)
[2021-03-09] MEDS: Multivitamin W/ Minerals 1 TAB PO SCH (09:00)
[2021-03-09] MEDS: Ferrous Gluconate 324 MG TAB PO SCH (09:00)
[2021-03-09] MEDS: Chlorthalidone 25 MG TAB PO SCH (09:04)
== END 2021-03-09 10:54 | disposition home or self-care (01) | DRG 470 ==
LOC: SDC 05:46 → SJJU 06:52
PROVIDERS: ADMIT Orthopaedic Surgery; ATTEND Orthopaedic Surgery
PROC: 0SRB049 Replacement of Left Hip Joint with Ceramic on Polyethylene Synthetic Substitute, Cemented, Open Approach (ICD-10-PCS; principal; 2021-03-07)
DX: M16.12 Unilateral primary osteoarthritis, left hip (principal); Z20.822 Contact with and (suspected) exposure to COVID-19; I10 Essential (primary) hypertension; E78.5 Hyperlipidemia, unspecified; G47.33 Obstructive sleep apnea (adult) (pediatric); J30.2 Other seasonal allergic rhinitis; G24.5 Blepharospasm; E11.9 Type 2 diabetes mellitus without complications; E66.9 Obesity, unspecified; F32.A Depression, unspecified; J45.20 Mild intermittent asthma, uncomplicated; E78.00 Pure hypercholesterolemia, unspecified; Z96.653 Presence of artificial knee joint, bilateral; Z96.641 Presence of right artificial hip joint; Z79.4 Long term (current) use of insulin; Z79.899 Other long term (current) drug therapy; Z79.82 Long term (current) use of aspirin; Z79.51 Long term (current) use of inhaled steroids; Z85.810 Personal history of malignant neoplasm of tongue; Z68.32 Body mass index [BMI] 32.0-32.9, adult
CPT/HCPCS: 36415; 36416; 77014; 77290; 77412; 77417; 80048; 80053; 81001; 85025; 85027; 85610; 87081; 93005; 93010; J1170; J1815; J1885; J2250; J2405; J2550; J2704; J3010; J3370; J3490; J7050; S0020; U0003; U0005

== ENCOUNTER 2021-11-13 09:23 | Outpatient (CLI) | payer MEDICARE, OTHER ==
[2021-11-13 11:00] LABS: Hemoglobin 13.6 g/dL (13.5-17.5); Mean Corpuscular HGB CONC 32.4 g/dL (32.0-36.0); Mean Corpuscular Volume 80.3 fl (81.2-95.1); Mean Platelet Volume 10.2 fl (7.4-10.4); Platelet Count 209 10x3/uL (150-450); RBC Distribution Width 17.2 % (11.5-14.5); Red Blood Cell (RBC) Count 5.23 10x6/uL (4.32-5.72); White Blood Cell (WBC) Count 6.2 10x3/uL (3.5-10.5)
[2021-11-13 11:03] LABS: Bilirubin Neg (Negative); Blood, Urine Negative (Negative); Clarity Clear (Clear); Glucose, Urine (Dipstick) Normal (Negative); Ketone, Urine Negative (Negative); Leukocyte Negative (Negative); Nitrite Negative (Negative); Protein, Urine (Dipstick) Negative (Neg-Trace); Urobilinogen Normal mg/dL (Less than 2)
[2021-11-13 11:18] LABS: INR-International Normal Ratio 1.1; PTT 28.2 sec (22.0-33.0); Prothrombin Time 11.4 sec (9.5-12.1)
[2021-11-13 11:23] LABS: RBC/HPF 0-3 HPF (0-3); WBC/HPF 0-3 HPF (0-3)
[2021-11-13 11:24] LABS: Bacteria/HPF None Seen HPF (None Seen); Squamous Epithelial 0-3 HPF (0-3)
[2021-11-13 11:40] LABS: Anion Gap 13 mmol/L (10-20); BUN (Urea Nitrogen) 18 mg/dL (8.4-25.7); Calc. Creatinine Clearance 0 mL/min (70-130); Calcium 9.4 mg/dL (7.8-10.44); Carbon Dioxide 29 mmol/L (23-31); Chloride 98 mmol/L (98-107); Estimated GFR 93; Glucose 122 mg/dL (80-115); Potassium 3.7 mmol/L (3.5-5.1); Sodium 136 mmol/L (136-145)
== END 2021-11-13 09:24 | disposition home or self-care (01) ==
LOC: LABBT 09:23
PROVIDERS: ATTEND Urology
DX: Z01.818 Encounter for other preprocedural examination (principal); Z20.822 Contact with and (suspected) exposure to COVID-19
CPT/HCPCS: 71046; 80048; 81001; 85027; 85610; 85730; 87086; 87811; 93005; 93010

== ENCOUNTER 2021-11-16 06:12 | Day surgery (SDC) | payer MEDICARE, OTHER ==
[2021-11-14 15:09] VITALS: BMI 33.2
[2021-11-16] MEDS ORDERED: Aztreonam 1 GM in Sodium Chloride 0.9% 100 ML IVPB SCH (06:30)
[2021-11-16] MEDS ORDERED: Neomycin-Polymyxin 1 ML AMP ONE ×2 (06:31→06:56)
[2021-11-16] MEDS ORDERED: fentaNYL Citrate/PF 100 MCG/2 ML SYRINGE ONE (06:46)
[2021-11-16] MEDS ORDERED: Bupivacaine 0.25% HCL 30 ML VIAL ONE (06:56)
[2021-11-16] MEDS ORDERED: Vancomycin 1 GM/200 ML BAG ONE (06:57)
[2021-11-16] MEDS ORDERED: Albuterol Sulfate HFA (OR ONLY) ONE (07:27)
[2021-11-16] MEDS ORDERED: PROPOFOL 200 MG/20 ML VIAL ONE (07:43)
[2021-11-16] MEDS ORDERED: Glycopyrrolate 0.2 MG/ML 5 ML SYRINGE ONE (07:43)
[2021-11-16] MEDS ORDERED: Phenylephrine 10 MG/ML VIAL ONE (07:43)
[2021-11-16] MEDS ORDERED: ePHEDrine 50 MG/ML VIAL ONE (07:43)
[2021-11-16] MEDS ORDERED: Ondansetron PF 4 MG/2 ML Vial ONE (07:43)
[2021-11-16] MEDS ORDERED: Lidocaine 1% PF 5 ML VIAL ONE (07:43)
[2021-11-16] MEDS ORDERED: Fentanyl 100 MCG/2 ML VIAL ONE ×2 (10:18→10:56)
== END 2021-11-16 13:15 | disposition home or self-care (01) ==
LOC: SDC 06:12
PROVIDERS: ATTEND Urology
PROC: 0VUS0JZ Supplement Penis with Synthetic Substitute, Open Approach (ICD-10-PCS; principal; 2021-11-16)
DX: N52.9 Male erectile dysfunction, unspecified (principal); E10.9 Type 1 diabetes mellitus without complications; E29.1 Testicular hypofunction; I10 Essential (primary) hypertension; E78.00 Pure hypercholesterolemia, unspecified; E66.9 Obesity, unspecified; Z68.33 Body mass index [BMI] 33.0-33.9, adult; Z79.4 Long term (current) use of insulin; Z79.899 Other long term (current) drug therapy; Z88.8 Allergy status to other drugs, medicaments and biological substances; Z91.014 Allergy to mammalian meats
CPT/HCPCS: 54401; C1713; C1813; J2370; J2405; J2704; J3010; J3370; J3490; S0020

== ENCOUNTER 2022-06-01 10:34 | Outpatient (CLI) | payer MEDICARE, OTHER ==
[2022-06-01 11:40] LABS: Mean Corpuscular HGB CONC 32.7 g/dL (32.0-36.0); Mean Corpuscular Hemoglobin 27.9 pg (27.0-33.0); Mean Corpuscular Volume 85.5 fl (81.2-95.1); Mean Platelet Volume 10.1 fl (7.4-10.4); Platelet Count 192 10x3/uL (150-450); RBC Distribution Width 16.8 % (11.5-14.5); Red Blood Cell (RBC) Count 5.37 10x6/uL (4.32-5.72); White Blood Cell (WBC) Count 6.4 10x3/uL (3.5-10.5)
[2022-06-01 11:41] LABS: Bilirubin Neg (Negative); Blood, Urine Negative (Negative); Clarity Clear (Clear); Glucose, Urine (Dipstick) 50 mg/dL (Negative); Ketone, Urine Negative (Negative); Leukocyte Negative (Negative); Nitrite Negative (Negative); Protein, Urine (Dipstick) Negative (Neg-Trace); Urobilinogen Normal mg/dL (Less than 2)
[2022-06-01 11:54] LABS: INR-International Normal Ratio 1.1; PTT 29.3 sec (22.0-33.0); Prothrombin Time 11.9 sec (9.5-12.1)
[2022-06-01 11:55] LABS: Anion Gap 12 mmol/L (10-20); BUN (Urea Nitrogen) 18 mg/dL (8.4-25.7); Calc. Creatinine Clearance 0 mL/min (70-130); Calcium 9.5 mg/dL (7.8-10.44); Carbon Dioxide 29 mmol/L (23-31); Chloride 100 mmol/L (98-107); Estimated GFR 91; Glucose 140 mg/dL (80-115); Potassium 3.6 mmol/L (3.5-5.1); Sodium 137 mmol/L (136-145)
[2022-06-01 12:03] LABS: Bacteria/HPF None Seen HPF (None Seen); RBC/HPF 0-3 HPF (0-3); Squamous Epithelial None Seen HPF (0-3); WBC/HPF 0-3 HPF (0-3)
== END 2022-06-01 10:35 | disposition home or self-care (01) ==
LOC: LABBT 10:34
PROVIDERS: ATTEND Urology
DX: Z01.818 Encounter for other preprocedural examination (principal); N52.9 Male erectile dysfunction, unspecified; E66.9 Obesity, unspecified; E10.69 Type 1 diabetes mellitus with other specified complication; E29.1 Testicular hypofunction
CPT/HCPCS: 80048; 81001; 85027; 85610; 85730; 87086; 93005; 93010

== ENCOUNTER 2022-06-15 06:06 | Day surgery (SDC) | payer MEDICARE, OTHER ==
[2022-06-13 14:03] VITALS: BMI 33.9
[2022-06-15] MEDS ORDERED: Aztreonam 1 GM in Sodium Chloride 0.9% 100 ML IVPB SCH (06:45)
[2022-06-15] MEDS ORDERED: Vancomycin 1 GM in Premix Bag 1 BAG IVPB SCH (06:45)
[2022-06-15] MEDS ORDERED: Vancomycin 1 GM VIAL ONE (06:45)
[2022-06-15] MEDS ORDERED: Neomycin-Polymyxin 1 ML AMP ONE (06:45)
[2022-06-15] MEDS ORDERED: Vancomycin 1 GM/200 ML (FROZEN) BAG ONE (06:59)
[2022-06-15] MEDS ORDERED: fentaNYL PF 100 MCG/2 ML SYRINGE ONE (07:01)
[2022-06-15] MEDS ORDERED: ePHEDrine 50 MG/ML VIAL ONE (07:49)
[2022-06-15] MEDS ORDERED: PHENYLEPHRINE-NS 100 MCG/ML 10 ML SYRINGE ONE (07:49)
[2022-06-15] MEDS ORDERED: Ondansetron PF 4 MG/2 ML Vial ONE (07:49)
[2022-06-15] MEDS ORDERED: Lidocaine 1% PF 5 ML VIAL ONE (07:49)
[2022-06-15] MEDS ORDERED: PROPOFOL 200 MG/20 ML VIAL ONE (07:49)
[2022-06-15] MEDS ORDERED: Fentanyl 100 MCG/2 ML VIAL ONE (09:41)
== END 2022-06-15 13:15 | disposition home or self-care (01) ==
LOC: SDC 06:06
PROVIDERS: ATTEND Urology
PROC: 0VUS0JZ Supplement Penis with Synthetic Substitute, Open Approach (ICD-10-PCS; principal; 2022-06-15)
PROC: 0VPS0JZ Removal of Synthetic Substitute from Penis, Open Approach (ICD-10-PCS; 2022-06-15)
DX: T83.420A Displacement of implanted penile prosthesis, initial encounter (principal); E10.69 Type 1 diabetes mellitus with other specified complication; N52.1 Erectile dysfunction due to diseases classified elsewhere; I10 Essential (primary) hypertension; E78.5 Hyperlipidemia, unspecified; Z79.899 Other long term (current) drug therapy; Z88.8 Allergy status to other drugs, medicaments and biological substances; Z91.014 Allergy to mammalian meats; Y73.3 Surgical instruments, materials and gastroenterology and urology devices (including sutures) associated with adverse incidents
CPT/HCPCS: 54410; 82962; C1713; J3370; 36416; J2405; J2704; J3010; J3490

== ENCOUNTER 2022-08-13 07:50 | Outpatient (CLI) | payer MEDICARE, OTHER | END 2022-08-13 07:51 | disposition home or self-care (01) | LOC: SCSMRI 07:50 | PROVIDERS: ATTEND Neurological Surgery | DX: M47.22 Other spondylosis with radiculopathy, cervical region (principal); M48.02 Spinal stenosis, cervical region; M50.123 Cervical disc disorder at C6-C7 level with radiculopathy; M47.26 Other spondylosis with radiculopathy, lumbar region; M51.16 Intervertebral disc disorders with radiculopathy, lumbar region; M48.061 Spinal stenosis, lumbar region without neurogenic claudication; M46.06 Spinal enthesopathy, lumbar region; M51.37 Other intervertebral disc degeneration, lumbosacral region; M48.07 Spinal stenosis, lumbosacral region; M47.817 Spondylosis without myelopathy or radiculopathy, lumbosacral region; Z98.890 Other specified postprocedural states | CPT/HCPCS: 72141; 72148 ==

== ENCOUNTER 2022-09-17 12:23 | Outpatient (CLI) | payer MEDICARE, OTHER ==
[2022-09-17 14:29] LABS: Bilirubin Neg (Negative); Blood, Urine Negative (Negative); Clarity Clear (Clear); Glucose, Urine (Dipstick) Normal (Negative); Hemoglobin 15.5 g/dL (13.5-17.5); Ketone, Urine Negative (Negative); Leukocyte Negative (Negative); Mean Corpuscular HGB CONC 32.4 g/dL (32.0-36.0); Mean Corpuscular Hemoglobin 28.5 pg (27.0-33.0); Mean Platelet Volume 10.8 fl (7.4-10.4); Nitrite Negative (Negative); Platelet Count 201 10x3/uL (150-450); Protein, Urine (Dipstick) Negative (Neg-Trace); RBC Distribution Width 14.6 % (11.5-14.5); Red Blood Cell (RBC) Count 5.43 10x6/uL (4.32-5.72); Urobilinogen Normal mg/dL (Less than 2)
[2022-09-17 14:50] LABS: Anion Gap 13 mmol/L (10-20); BUN (Urea Nitrogen) 17 mg/dL (8.4-25.7); Calc. Creatinine Clearance 0 mL/min (70-130); Calcium 9.7 mg/dL (7.8-10.44); Carbon Dioxide 29 mmol/L (23-31); Chloride 100 mmol/L (98-107); Estimated GFR 92; Glucose 111 mg/dL (80-115); Potassium 3.9 mmol/L (3.5-5.1); Sodium 138 mmol/L (136-145)
[2022-09-17 15:01] LABS: INR-International Normal Ratio 1.1; PTT 28.9 sec (22.0-33.0)
[2022-09-17 15:42] LABS: RBC/HPF 0-3 HPF (0-3); Squamous Epithelial 0-3 HPF (0-3); WBC/HPF 0-3 HPF (0-3)
[2022-09-17 15:43] LABS: Bacteria/HPF 1+ HPF (None Seen)
== END 2022-09-17 12:24 | disposition home or self-care (01) ==
LOC: LABBT 12:23
PROVIDERS: ATTEND Urology
DX: Z01.818 Encounter for other preprocedural examination (principal); T83.61XS Infection and inflammatory reaction due to implanted penile prosthesis, sequela; E29.1 Testicular hypofunction; E10.69 Type 1 diabetes mellitus with other specified complication; E66.9 Obesity, unspecified; N52.1 Erectile dysfunction due to diseases classified elsewhere
CPT/HCPCS: 71046; 80048; 81001; 85027; 85610; 85730; 87086; 93005; 93010

== ENCOUNTER 2024-12-11 11:34 | Outpatient (CLI) | payer MEDICARE, OTHER ==
[2024-12-11 12:31] LABS: Estimated GFR - POC 90.0
[2024-12-11] MEDS ORDERED: Iopamidol 370 76% 100 ML VIAL ONE (12:53)
== END 2024-12-11 11:35 | disposition home or self-care (01) ==
LOC: CT 11:34
PROVIDERS: ATTEND Otolaryngology
DX: C02.9 Malignant neoplasm of tongue, unspecified (principal); M79.89 Other specified soft tissue disorders
CPT/HCPCS: 36415; 70491; 71260; 82565; Q9967